=== PATIENT | female | born 1970 | race Caucasian/White ===

== ENCOUNTER 2019-11-01 16:35 | Emergency (ER) | payer SELFPAY ==
[2019-11-01 16:58] VITALS: BP 199/101; PULSE 62; RESP 16; TEMP 36.7; O2SAT 95; BMI 32.3
--- NOTE | 2019-11-01 17:01 | CTR_ITS ---
PROCEDURE INFORMATION: Exam: CT Head Without Contrast Exam date and time: 11/01/2019 5:04 PM Age: 49 years old Clinical indication: Weakness, extremity; Right; Additional info: Symptoms of acute stroke TECHNIQUE: Imaging protocol: Computed tomography of the head without contrast. Radiation optimization: All CT scans at this facility use at least one of these dose optimization techniques: automated exposure control; mA and/or kV adjustment per patient size (includes targeted exams where dose is matched to clinical indication); or iterative reconstruction. Other technique: STROKE PROTOCOL was implemented. COMPARISON: No relevant prior studies available. RADIATION DOSE METRICS: Total DLP (mGy-cm): 1579.87 FINDINGS: Limitations: Study is significantly limited by patient motion. Brain: Normal. No hemorrhage. Unremarkable white matter. No mass effect. Ventricles: Normal. No ventriculomegaly. Bones/joints: Unremarkable. No acute fracture. Sinuses: Visualized sinuses are unremarkable. No fluid levels. Mastoid air cells: Visualized mastoid air cells are well aerated. Soft tissues: Unremarkable. CT/CT head wo con* [id number] IMPRESSION: No acute intracranial finding ASSESSMENT: ASPECTS ([facility] Stroke Program Early CT Score) is 10. Radiation Dose CTDIVOL = (mGy): DLP = 1579.87 (mGy-cm)
--- NOTE | 2019-11-01 17:01 | ECG_ITS ---
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 Measurements Intervals [place] Rate: 62 P: 10 IA: 166 QRS: 14 QRSD: 97 T: 75 QT: 460 QTc: 467 Interpretive Statements SINUS RHYTHM No previous ECG available for comparison Electronically Signed On 11-01-2019 17:11:45 CDT by Cecelia Franz M.D. [id number]
--- NOTE | 2019-11-01 17:30 | ED_ITS ---
HPI - Neuro Symptoms/Deficit General: Chief Complaint: Neuro Symptoms/Deficit Stated Complaint: R SIDED ARM WEAKNESSES/ HYPERTENSION Time Seen by Provider: 11/01/19 16:39 History of Present Illness: HPI Narrative: 49-year-old female comes in complaining of right arm and leg weakness that began yesterday at around 5:00. Approximately 24 hours prior to presentation to the emergency room review patient tested began actually worsened today at around 230 in and also began involve a headache with some scotomata. She is not been taking her antihypertensive medication she usually takes lisinopril when EMS picked her up she had blood pressures up to 190/100 they were going to give her some labetalol per their protocol but unfortunately they could not had any did not have any available in the rig. She has not had any chest pain she does have a headache that began later this afternoon with the elevated blood pressures. He has had a little visual disturbance as well. Although she states that her headache is completely resolved now when she is here in the emergency room her blood pressure has normalized as well to it is in the 120 systolic. Onset (ago): day(s) (1) Timing confirmed by: family member Location: speech, right face, right arm and right leg History of same: Yes Severity: moderate Quality: weak Relieving factors: none Context: sudden onset On Anticoagulants: No Associated symptoms: Reports no associated symptoms; Deny chest pain, malaise, nausea or vomiting Treatments Prior to Arrival: none Review of Systems Const: Denies: fever(s), chills, body aches, change in appetite, fatigue or malaise ENMT: Denies: throat pain, ear or mastoid pain, nasal discharge or nasal congestion Card: Denies: chest pain, edema, dyspnea on exertion or orthopnea Resp: Denies: dyspnea, productive cough or non-productive cough GI: Denies: abdominal pain, nausea, vomiting, hematemesis, coffee ground emesis, diarrhea, constipation, bloating, hematochezia or melena : Denies: flank pain, difficulty voiding, dysuria, urinary frequency or urinary urgency Skin/Breast: Denies: rash or pruritus [facility] ED PFSH: Medical History (Updated 11/13/19 @ 06:53 by Eliceo Fonseca DO) Hypertension Surgical History (Updated 11/01/19 @ 17:34 by Eliceo Fonseca DO) H/O tubal ligation S/P tonsillectomy and adenoidectomy Social History (Updated 11/01/19 @ 17:07 by Anthony Galaviz RN) Smoking and tobacco status: heavy tobacco smoker Alcohol intake: never NIH stroke score NIHSS: Level Of Consciousness - 1a: 0 Level Of Consciousness Questions - 1b: Both Correct Level Of Consciousness Commands - 1c: Both Correct Best Gaze - 2: Normal Visual Ramirez - 3: No Visual Loss Facial Palsy - 4: Normal Motor Arm Right - 5: Drift Motor Arm Left - 5: No Drift Motor Leg Right - 6: Effort Against Yoder Motor Leg Left - 6: No Drift Limb Ataxia - 7: Present In Two Limbs Sensory - 8: Mild To Moderate Loss Best Language - 9: No Aphasia Dysarthia - 10: Normal Extinction And Inattention - 11: 0 Score: Total Score: 6 Physical Exam Const: COMMON NORMALS: no acute distress GENERAL APPEARANCE: cooperative and comfortable ORIENTATION/CONSCIOUSNESS: Yes awake, Yes oriented to person, Yes oriented to place and Yes oriented to time HENMT: COMMON NORMALS: normocephalic, atraumatic, hearing grossly normal bilaterally, external ears normal, EAC's normal, TM's normal bilaterally, Normal nasal mucous membranes and turbinates present, moist oral mucous membranes and oropharynx normal HEAD & SCALP: normocephalic and atraumatic NOSE: Normal nasal mucous membranes and turbinates present EXTERNAL EAR: Yes external ears normal EXTERNAL AUDITORY CANAL: EAC's normal TYMPANIC MEMBRANE: TM's normal bilaterally Eye: COMMON NORMALS: Equal, round and reactive pupils present, EOMs intact bilaterally, conjunctivae normal and no scleral icterus CONJUNCTIVA: Yes conjunctivae normal PUPIL: Yes Equal, round and reactive pupils present Neck/C-Spine: COMMON NORMALS: full ROM, no lymphadenopathy, supple and no JVD Lymph: LYMPHATIC: no lymphadenopathy noted and no lymphedema noted Resp: COMMON NORMALS: normal respiratory effort, No retractions, No use of accessory muscles and clear to auscultation bilaterally AUSCULTATION: clear to auscultation bilaterally Cardio: COMMON NORMALS: no JVD, regular rate, regular rhythm and No murmurs present (Cardio) RATE: regular rate RHYTHM: regular rhythm GI: COMMON NORMALS: Soft to palpation and No hepatosplenomegaly present AUSCULTATION: Yes normoactive bowel sounds PALPATION: Yes Soft to palpation, No Tenderness to palpation present (GI), No Guarding due to palpation present (GI) and Yes No hepatosplenomegaly present Extremity: COMMON NORMALS: normal to inspection, capillary refill normal, no clubbing, cyanosis or edema, no calf tenderness and no pedal edema Neuro: SENSORIUM/ORIENTATION: Yes oriented to person, Yes oriented to place and Yes oriented to time Skin: COMMON NORMALS: no rashes or lesions noted GENERAL SKIN EXAM: no rashes or lesions noted Course Vital Signs: Vital signs: Vital Signs Temperature 98.0 F 11/01/19 16:58 Pulse Rate 62 11/01/19 16:58 Respiratory Rate 16 11/01/19 16:58 Blood Pressure 199/101 11/01/19 16:58 Pulse Oximetry 95 11/01/19 16:58 MDM - Neuro Symptoms/Deficit MDM Narrative: Medical decision making narrative: Most of her symptoms had resolved or recommended that she be placed in observation for further evaluation given his symptoms that she had reached when she first arrived. Patient is adamant about leaving. I discussed the risks of leaving without further evaluation patient is adamant that she be allowed to go home. At this point she is awake and alert oriented answers all questions appropriately she expresses understanding that if she leaves her condition may worsen and could cause severe disability or even and she still wishes to go. I do recommend that she take a baby aspirin daily follow-up with her primary care doctor soon as possible. Lab Data: Labs: Lab Results 11/01/19 11/01/19 11/01/19 Range/Units 17:54 17:54 17:54 WBC 10.0 (4.0-10.0) 10^3/ uL RBC 4.97 (4.1-5.3) 10^6/u L Hgb 9.8 L (11.5-15.3) g/dL Hct 35.2 L (37.0-47.0) % MCV 70.8 L (81-99) fL MCH 19.7 L (28.0-34.0) pg MCHC 27.8 L (30.0-36.0) g/dL RDW 19.7 H (12.1-15.1) % Plt Count 348 (130-400) 10^3/c mm MPV 9.7 (7.4-10.4) fL Neut % (Auto) 70.8 % Lymph % (Auto) 19.2 % Bowie % (Auto) 6.1 % Eos % (Auto) 2.9 % Baso % (Auto) 0.5 % Neut # (Auto) 7.07 (1.8-7.7) 10^3/u L Lymph # (Auto) 1.9 (0.8-4.8) 10^3/u L Bowie # (Auto) 0.6 (0.2-0.9) 10^3/u L Eos # (Auto) 0.3 (0.0-0.8) 10^3/u L Baso # (Auto) 0.1 (0.0-0.1) 10^3/u L Nucleated RBC % (a uto) 0 % Nucleated RBCs # 0.0 /100WBC PT 13.20 (10.5-13.3) SECO NDS INR 0.97 (0.8-1.2) APTT 28.7 (23.9-36.7) SECO NDS Sodium 137 (136-145) mmol/L Potassium 3.9 (3.5-5.1) mmol/L Chloride 101 (98-107) mmol/L Carbon Dioxide 26 (22-29) mmol/L Anion Gap 13.9 (5-19) BUN 8 (6-20) mg/dL Creatinine 0.7 (0.5-0.9) mg/dL GFR Calculation 88.2 L (90-130) mL/min Glucose 114 (65-115) mg/dL Calculated Osmolal ity 281 L (285-295) mOsm/k g Calcium 9.3 (8.5-10.5) mg/dL Total Bilirubin 0.5 (0.15-1.2) mg/dL AST 14 (0-32) U/L ALT 12 (0-33) U/L Alkaline Phosphata se 107 H (35-105) IU/L Total Protein 6.8 (6.6-8.7) g/dL Albumin 4.5 (3.5-5.2) g/dL Globulin 2.3 (1.3-4.6) g/dL Discharge Plan Discharge Patient Disposition: Left Against Medical Advice Clinical Impression: Transient cerebral ischemia, Hypertension Prescriptions: No Action ibuprofen 200 mg Tablet 600 mg PO PRN RF: 0 Referrals: CHIRAG GARCIA, [Primary Care Provider] - Interventions: ED Discharge Assessment Last Done: 11/01/19 19:32 ED Charges Last Done: 11/01/19 19:32 Discharge Date/Time: 11/01/19 19:36 Coding Level of Care Code ED Roll Up Machine Operator for Chg Fwd Exam Comprehensive
[2019-11-01 17:58] LABS: Basophils # 0.1 10^3/uL (0.0-0.1); Basophils % 0.5 %; Eosinophils # 0.3 10^3/uL (0.0-0.8); Eosinophils % 2.9 %; Hematocrit 35.2 % (37.0-47.0); Hemoglobin 9.8 g/dL (11.5-15.3); Lymphocytes # 1.9 10^3/uL (0.8-4.8); Lymphocytes % 19.2 %; Mean Corpuscular HGB Conc 27.8 g/dL (30.0-36.0); Mean Corpuscular Hemoglobin 19.7 pg (28.0-34.0); Mean Corpuscular Volume 70.8 fL (81-99); Mean Platelet Volume 9.7 fL (7.4-10.4); Monocytes # 0.6 10^3/uL (0.2-0.9); Monocytes % 6.1 %; Neutrophils # 7.07 10^3/uL (1.8-7.7); Neutrophils % 70.8 %; Nucleated Red Blood Cells % 0 %; Platelet Count 348 10^3/cmm (130-400); Red Blood Count 4.97 10^6/uL (4.1-5.3); Red Cell Distribution Width 19.7 % (12.1-15.1)
[2019-11-01 18:22] LABS: Alanine Aminotransferase 12 U/L (0-33); Albumin Level 4.5 g/dL (3.5-5.2); Alkaline Phosphatase 107 IU/L (35-105); Anion Gap 13.9 (5-19); Aspartate Amino Transferase 14 U/L (0-32); Blood Urea Nitrogen 8 mg/dL (6-20); Calcium 9.3 mg/dL (8.5-10.5); Carbon Dioxide 26 mmol/L (22-29); Chloride 101 mmol/L (98-107); Globulin 2.3 g/dL (1.3-4.6); Glomerular Filtration Rate 88.2 mL/min (90-130); Glucose 114 mg/dL (65-115); Osmolality Calculated 281 mOsm/kg (285-295); Potassium 3.9 mmol/L (3.5-5.1); Sodium 137 mmol/L (136-145); Total Bilirubin 0.5 mg/dL (0.15-1.2); Total Protein 6.8 g/dL (6.6-8.7)
[2019-11-01 18:26] LABS: INR 0.97 (0.8-1.2); Partial Thromboplastin Time 28.7 SECONDS (23.9-36.7)
== END 2019-11-01 19:36 | disposition left against medical advice (07) ==
LOC: ER 17:15
PROVIDERS: Emergency Provider Family Medicine; PCP Family Medicine
DX: G45.9 Transient cerebral ischemic attack, unspecified (principal); I10 Essential (primary) hypertension; Z53.21 Procedure and treatment not carried out due to patient leaving prior to being seen by health care provider; F17.210 Nicotine dependence, cigarettes, uncomplicated
CPT/HCPCS: 12345; 70450; 80053; 85025; 85610; 85730; 93005; 99282; 99283

== ENCOUNTER 2022-01-28 14:50 | Inpatient (IN) | payer MEDICAID, SELFPAY ==
[2022-01-28] VITALS (34 sets, daily range): BP systolic 184–218; BP diastolic 81–134; PULSE 50–90; RESP 10–23; TEMP 36.7; O2SAT 88–95; BMI 38.4
--- NOTE | 2022-01-28 14:55 | CTR_ITS ---
PROCEDURE INFORMATION: Exam: CT Head Without Contrast Exam date and time: 01/28/2022 2:52 PM Age: 52 years old Clinical indication: Stroke-like symptoms; Speech disturbance; Lt upper extremity weakness; Additional info: Symptoms of acute stroke TECHNIQUE: Imaging protocol: Computed tomography of the head without contrast. Radiation optimization: All CT scans at this facility use at least one of these dose optimization techniques: automated exposure control; mA and/or kV adjustment per patient size (includes targeted exams where dose is matched to clinical indication); or iterative reconstruction. Other technique: STROKE PROTOCOL was implemented. COMPARISON: CT head wo con* [id number] 11/01/2019 5:10 PM RADIATION DOSE METRICS: Total DLP (mGy-cm): 1082.88 FINDINGS: Brain: Chronic right superolateral thalamic lacunar infarction. Ventricles: No ventriculomegaly. Paranasal sinuses: Visualized sinuses are unremarkable. No fluid levels. Mastoid air cells: Visualized mastoid air cells are well aerated. Bones/joints: Lateral right frontal bone external table benign osteoma measuring 7.4 mm, stable. Soft tissues: Unremarkable. Vasculature: Atherosclerotic calcifications are present involving the carotid artery siphons and vertebral arteries bilaterally. CT/CT head wo con* [id number] IMPRESSION: 1. Chronic right superolateral thalamic lacunar infarction. 2. No acute intracranial abnormality identified. ASSESSMENT: ASPECTS ([place] Stroke Program Early CT Score) is 10.
[2022-01-28 15:09] LABS: Glucose Point of Care 123 mg/dL (70-110)
--- NOTE | 2022-01-28 15:13 | W.ED.GENADLT ---
HPI - General Adult General: Chief complaint: Neuro Symptoms/Deficit Stated complaint: stroke like symptoms,left facial droop Time Seen by Provider: 01/28/22 14:54 History of Present Illness: Patient is 52-year-old female with no known past medical history presents emergency room with concerns of left-sided facial droop and left arm paralysis since yesterday night between 9 AM to midnight. Patient first noticed symptoms around that time. Since, patient has not been able to move the arm or leg. Earlier today, due to persistence of symptoms, patient decided to call EMS. Patient is not on any anticoagulation. Patient has no other focal complaints including nausea/vomiting, fever/chill, chest pain, shortness of breath, abdominal pain, dysuria/hematuria/polyuria, diarrhea/melena/hematochezia. Onset:9pm-12am yesterday Duration: 18 hrs nguyễn Location:home Severity:severe Associated symptoms: Deny chest pain, dyspnea, nausea, rash, palpitations or vomiting Review of Systems Const: Denies: fever(s) or chills Eyes: Denies: change in vision ENMT: Denies: mouth pain Card: Denies: chest pain or palpitations Resp: Denies: dyspnea or non-productive cough GI: Denies: abdominal pain, nausea, vomiting or diarrhea : Denies: dysuria Musc: Denies: extremity pain Skin/Breast: Denies: rash or new lesions Neuro: Reports: weakness in extremities (+L sided weakness/ Larm weakness/Lleg weakness/ Lfacial droop/speech diff) Psych: Reports: other (Normal mood) Wiliam/Lymph: Denies: easy bruising [facility] ED PFSH: Medical History (Updated 02/02/22 @ 10:19 by Aniya Reynolds MD) History of multiple strokes Hypertension Surgical History H/O tubal ligation S/P tonsillectomy and adenoidectomy Social History Smoking and tobacco status: heavy tobacco smoker Alcohol intake: never Physical Exam Const: COMMON NORMALS: alert HENMT: COMMON NORMALS: atraumatic HEAD & SCALP: atraumatic MOUTH: moist mucous membranes not abnormal Eye: COMMON NORMALS: EOMs intact bilaterally and conjunctivae normal CONJUNCTIVA: Yes conjunctivae normal Neck/C-Spine: COMMON NORMALS: full ROM and supple Resp: COMMON NORMALS: normal respiratory effort and clear to auscultation bilaterally AUSCULTATION: clear to auscultation bilaterally Cardio: COMMON NORMALS: regular rate RATE: regular rate GI: COMMON NORMALS: Soft to palpation and non-tender PALPATION: Yes Soft to palpation Extremity: COMMON NORMALS: full ROM Neuro: SENSORIUM/ORIENTATION: Yes alert MOTOR EXAM: Abnormal motor strength present OTHER: Head: Atraumatic Eyes: PERRL, conjunctiva without injection ENT: Mucous membrane moist NECK: Supple without lymphadenopathy LUNGS: CTA CV: RRR ABDOMEN: Soft, nontender EXTREMITY: Normal ROM SKIN: No rash or erythema NEURO: NIHSS: 18 1. Level of Consciousness 1 A) LOC Responsiveness 0 B) LOC Questions 0 C) LOC Commands 0 2. Horizontal Eye Movement 0 3. Visual field test 0 4. Facial Palsy 3 5. Motor Arm 4 6. Motor Leg 4 7. Limb Ataxia 0 8. Sensation 2 9. Language 1 10. Speech 2 11. Extinction and Inattention 0 Psych: COMMON NORMALS: speech normal SPEECH: Yes normal speech MOOD & AFFECT: Yes euthymic mood Course Vital Signs: Vital signs: Vital Signs Temperature 98.0 F 02/02/22 10:59 Pulse Rate 62 02/02/22 10:59 Respiratory Rate 17 02/02/22 10:59 Blood Pressure 176/64 02/02/22 10:59 Pulse Oximetry 93 02/02/22 10:59 Oxygen Delivery Me thod 02/02/22 10:59 Oxygen Flow Rate 2 02/01/22 20:42 MDM - General Adult Medical Decision Making 52-year-old female history hypertension presenting to the emergency room with new onset of left-sided weakness and slurring of speech since 9 to 12am yesterday. Exam, patient has NIH stroke scale of 19. Patient is outside of tPA window. CT head is negative for any acute finding. CTA head and neck showed right-sided PHONE ENGINEER P2 segment acute occlusion. Patient is within tomorrow for mechanical thrombectomy. We will attempt to transfer this time. Case was discussed with Dr. Mendes who agreed with the transfer to [facility] ED for mechanical thrombectomy. Disposition: Transfer to outside hospital We have arranged for [facility] as well as an accepting hospital. However, around 171, patient declined to be transferred. Initially patient tells me that she would like not like to be fly. I have offered patient mild sedation medicine however patient continues to decline the transfer. I explained to the patient of the risk of complete paralysis as well as the terrible quality of life should she decide against transfering for mechanical thrombectomy. She continues to be insistent that she would not like to be transferred to another hospital at this time. Patient asked to have her family at bedside. I discussed case with patient's daughter and son at bedside. Patient is AAOx3, answering all my questions appropriately. Patient currently has capacity. Case was discussed with [facility] Neurology Dr. Rao who will follow patient for acute stroke. Dr. Rao recommended medical optimization and cardiac workup. At 8:30 PM, patient had a shared decision making with family and patient would like to stay in the hospital for further observation. Disposition: observation. Lab Data : 02/02/22 04:39 02/02/22 04:[address] 01/28/22 14:55 IMPRESSION: 1. Chronic right superolateral thalamic lacunar infarction. 2. No acute intracranial abnormality identified. ASSESSMENT: ASPECTS ([place] Stroke Program Early CT Score) is 10. ADDENDUM: 01/28/22 1519 THIS REPORT CONTAINS FINDINGS THAT MAY BE CRITICAL TO PATIENT CARE. The findings were verbally communicated by me to DR. ALEXA BENAVIDES via telephone conference at 3:16 PM CDT on 01/28/2022. The findings were acknowledged and understood. Head/Neck CTA 01/28/22 15:20 IMPRESSION: 1. Severe stenosis proximal right posterior cerebral artery P1 segment. 2. Occlusion right posterior cerebral artery P2 segment. 3. Reconstitution right posterior cerebral artery P3 and peripheral segments, presumably via leptomeningeal collaterals. 4. Right internal carotid artery cavernous segment and clinoid segment moderate stenosis. IMPRESSION: 1. Severe (70%) left internal carotid artery origin short segment stenosis. 2. Recommend nonemergent thyroid sonography for further evaluation of a left thyroid masses. 3. Mild nonspecific mediastinal lymphadenopathy. COMMENTS: Consistent with the [employer]'s Incidental Findings Committee white paper (J Am Samantha Radiol 2015): In patients aged 35 years and older with an incidental thyroid nodule equal to or greater than 1.[address], MRI or extrathyroidal US, further evaluation with dedicated thyroid US is recommended for patients with normal life expectancy and without comorbidities. For smaller nodules without suspicious features, no further evaluation or follow up is recommended. REFERENCES: NASCET CRITERIA. The degree of stenosis in the cervical segment of the internal carotid artery is based on NASCET criteria. Normal is no stenosis. Mild is less than 50% stenosis. Moderate is 50-69% stenosis. Severe is 70% to 99% stenosis. Total occlusion is no detectable patent lumen. Thyroid Ultrasound 01/29/22 08:20 IMPRESSION: 1. Large complex cystic nodule in the LEFT thyroid. No increased vascularity. Typically cystic nodules are more likely benign. Recommend 6 month thyroid ultrasound follow-up to document stability. 2. No RIGHT thyroid nodules. Chest X-Ray 01/29/22 09:48 IMPRESSION: Imaging findings suggestive of mild pulmonary congestion. Pneumonia should be excluded clinically. Modified Barium Swallow 02/01/22 08:23 IMPRESSION: 1. A few episodes of laryngeal penetration with liquids. 2. No aspiration. Please see speech therapist report also for recommendations. Laboratory Results WBC 11.0 10^3/uL (4.0-10.0) H 01/28/22 15:01 RBC 5.37 10^6/uL (4.1-5.3) H 01/28/22 15:01 Hgb 12.8 g/dL (11.5-15.3) 01/28/22 15:01 Hct 42.0 % (37.0-47.0) 01/28/22 15:01 MCV 78.2 fl (81-99) L 01/28/22 15:01 MCH 23.8 pg (28.0-34.0) L 01/28/22 15:01 MCHC 30.5 g/dL (30.0-36.0) 01/28/22 15:01 RDW 18.6 % (12.1-15.1) H 01/28/22 15:01 Plt Count 246 10^3/cmm (130-400) 01/28/22 15:01 MPV 10.6 fL (7.4-10.4) H 01/28/22 15:01 Neut % (Auto) 73.2 % 01/28/22 15:01 Lymph % (Auto) 16.3 % 01/28/22 15:01 Stephenson % (Auto) 5.5 % 01/28/22 15:01 Eos % (Auto) 3.5 % 01/28/22 15:01 Baso % (Auto) 0.7 % 01/28/22 15:01 Neut # (Auto) 8.02 10^3/uL (1.8-7.7) H 01/28/22 15:01 Lymph # (Auto) 1.8 10^3/uL (0.8-4.8) 01/28/22 15:01 Stephenson # (Auto) 0.6 10^3/uL (0.2-0.9) 01/28/22 15:01 Eos # (Auto) 0.4 10^3/uL (0.0-0.8) 01/28/22 15:01 Baso # (Auto) 0.1 10^3/uL (0.0-0.1) 01/28/22 15:01 Nucleated RBC % (auto) 0 % 01/28/22 15:01 Nucleated RBCs # 0.0 /100WBC 01/28/22 15:01 PT 13.50 SECONDS (12.1-14.9) 01/28/22 15:01 INR 1.00 (0.8-1.2) 01/28/22 15:01 APTT 29.2 SECONDS (23.9-36.7) 01/28/22 15:01 Sodium 135 mmol/L (136-145) L 01/28/22 15:01 Potassium 3.9 mmol/L (3.5-5.1) 01/28/22 15:01 Chloride 97 mmol/L (98-107) L 01/28/22 15:01 Carbon Dioxide 25 mmol/L (22-29) 01/28/22 15:01 Anion Gap 16.9 (5-19) 01/28/22 15:01 BUN 12 mg/dL (6-20) 01/28/22 15:01 Creatinine 0.7 mg/dL (0.5-0.9) 01/28/22 15:01 GFR Calculation 87.2 mL/min (90-130) L 01/28/22 15:01 Glucose 122 mg/dL (65-115) H 01/28/22 15:01 POC Glucose 123 mg/dL (70-110) H 01/28/22 15:03 Calculated Osmolality 281 mOsm/kg (285-295) L 01/28/22 15:01 Calcium 9.6 mg/dL (8.5-10.5) 01/28/22 15:01 Total Bilirubin 0.6 mg/dL (0.15-1.2) 01/28/22 15:01 AST 11 U/L (0-32) 01/28/22 15:01 ALT 12 U/L (0-33) 01/28/22 15:01 Alkaline Phosphatase 116 U/L (35-105) H 01/28/22 15:01 Total Protein 6.6 g/dL (6.6-8.7) 01/28/22 15:01 Albumin 4.0 g/dL (3.5-5.2) 01/28/22 15:01 Globulin 2.6 g/dL (1.3-4.6) 01/28/22 15:01 Urine Color Yellow (Yellow) 01/28/22 19:12 Urine Appearance Clear (CLEAR) 01/28/22 19:12 Urine pH 5 (5-7) 01/28/22 19:12 Ur Specific [place] 1.005 (1.005-1.030) 01/28/22 19:12 Urine Protein 1+ (Negative) H 01/28/22 19:12 Urine Glucose (UA) Norm (Normal) 01/28/22 19:12 Urine Ketones 1+ (Negative) H 01/28/22 19:12 Urine Blood 3+ (Negative) H 01/28/22 19:12 Urine Nitrate Negative (Negative) 01/28/22 19:12 Urine Bilirubin Neg (Negative) 01/28/22 19:12 Urine Urobilinogen Norm mg/dL (Negative) 01/28/22 19:12 Ur Leukocyte Esterase Negative (Negative) 01/28/22 19:12 Urine RBC 5-10 /hpf (0-2) H 01/28/22 19:12 Urine WBC 0-4 /hpf (0-5) H 01/28/22 19:12 Ur Squamous Epith Cells 0-4 /hpf (0-5) H 01/28/22 19:12 Amorphous Sediment Not Reportable 01/28/22 19:12 Urine Bacteria Trace /hpf (NONE) 01/28/22 19:12 Imaging Data Other Imaging: Radiologist's impression: [address] [place] [address] CT Scan Report Signed Patient: Zahira Blood Unit #: [id number] : 1970 Age/Sex: 52 / F ADM Date: 01/28/22 Loc: ER Room/Bed: Attending Dr: Ordering Provider/Ordering MD: Alexa Benavides MD Date of Service: 01/28/22 Procedure(s): CT angio headneck* [id number] Accession Number(s): [id number] Report Number: [id number] PROCEDURE INFORMATION: Exam: CTA Head With Contrast, Arteriography Exam date and time: 01/28/2022 3:44 PM Age: 52 years old Clinical indication: Weakness; Additional info: Complete L sided weakness x 2 days TECHNIQUE: Imaging protocol: Computed tomographic angiography of the head with contrast. Exam focused on the arteries. 3D rendering (Not supervised by radiologist): MIP reconstructed images were created by the technologist. Radiation optimization: All CT scans at this facility use at least one of these dose optimization techniques: automated exposure control; mA and/or kV adjustment per patient size (includes targeted exams where dose is matched to clinical indication); or iterative reconstruction. Contrast material: OMNIPAQUE 350; Contrast volume: 100 ml; Contrast route: INTRAVENOUS (IV);? COMPARISON: CT head wo con* [id number] 01/28/2022 2:52 PM RADIATION DOSE METRICS: Total DLP (mGy-cm): 504.35 FINDINGS: ANTERIOR CIRCULATION: Right internal carotid artery: Right internal carotid artery cavernous segment 50-69% stenosis. Right internal carotid artery clinoid segment 50-69% stenosis. Right middle cerebral artery: No occlusion or significant stenosis. No aneurysm.? Right anterior cerebral artery: No occlusion or significant stenosis. No aneurysm.? Left internal carotid artery: Left internal carotid artery calcified plaque, less than 25% stenosis. Left middle cerebral artery: No occlusion or significant stenosis. No aneurysm.? Left anterior cerebral artery: No occlusion or significant stenosis. No aneurysm.? POSTERIOR CIRCULATION: Right vertebral artery: Right vertebral artery V4 segment atherosclerotic calcification, less than 50% stenosis. Left vertebral artery: Left vertebral artery V4 segment atherosclerotic calcifications, less than 30% stenosis. Basilar artery: No occlusion or significant stenosis. No aneurysm. Right posterior cerebral artery: Severe stenosis proximal right posterior cerebral artery P1 segment. Occlusion right posterior cerebral artery P2 segment. Reconstitution right posterior cerebral artery P3 and peripheral segments. Left posterior cerebral artery: No occlusion or significant stenosis. No aneurysm.? Brain: No definite mass, mass effect, or midline shift. Ventricles: No ventriculomegaly. Bones/joints: Small right lateral frontal external table osteoma redemonstrated. Soft tissues: Unremarkable. PROCEDURE INFORMATION: Exam: CTA Neck With Contrast Exam date and time: 01/28/2022 3:44 PM Age: 52 years old Clinical indication: Weakness; Additional info: Complete L sided weakness x 2 days TECHNIQUE: Imaging protocol: Computed tomographic angiography of the neck with contrast. 3D rendering (Not supervised by radiologist): MIP reconstructed images were created by the technologist. Radiation optimization: All CT scans at this facility use at least one of these dose optimization techniques: automated exposure control; mA and/or kV adjustment per patient size (includes targeted exams where dose is matched to clinical indication); or iterative reconstruction. Contrast material: OMNIPAQUE 350; Contrast volume: 100 ml; Contrast route: INTRAVENOUS (IV);? COMPARISON: CT head wo con* [id number] 01/28/2022 2:52 PM RADIATION DOSE METRICS: Total DLP (mGy-cm): 504.35 FINDINGS: Right common carotid artery: Minimal right common carotid artery bifurcation calcifications, no stenosis. Right internal carotid artery: No stenosis of the extracranial segment. No dissection or occlusion. Right external carotid artery: No occlusion or stenosis of the origin.? Left common carotid artery: Moderate left common carotid artery bifurcation atherosclerotic calcifications Left internal carotid artery: Severe left internal carotid artery origin short segment stenosis. Left external carotid artery: No occlusion or stenosis of the origin.? Right vertebral artery: Proximal right vertebral artery V1 segment atherosclerotic calcification, less than 50% stenosis. Left vertebral artery: No stenosis. No dissection or occlusion. Thyroid: Left inferior thyroid heterogeneous mass measuring 4.3 x 3.7 x 2.6 cm. Left upper thyroid marginally calcified 3.7 x 3.9 x 2.9 cm mass. Dental: Edentulous maxilla and mandible. Lymph nodes: Right paratracheal lymph node measuring 10 mm short axis. Right subcarinal lymph node measuring 13.6 mm short axis. Soft tissues: Normal. No significant soft tissue swelling. Bones/joints: No acute fracture. Lungs: Right lower and bilateral upper lobe calcified pulmonary parenchymal granulomas. CT/CT angio headneck* [id number] IMPRESSION: 1. Severe stenosis proximal right posterior cerebral artery P1 segment. 2. Occlusion right posterior cerebral artery P2 segment. 3. Reconstitution right posterior cerebral artery P3 and peripheral segments, presumably via leptomeningeal collaterals. 4. Right internal carotid artery cavernous segment and clinoid segment moderate stenosis. ? IMPRESSION: 1. Severe (70%) left internal carotid artery origin short segment stenosis. 2. Recommend nonemergent thyroid sonography for further evaluation of a left thyroid masses. 3. Mild nonspecific mediastinal lymphadenopathy. ? COMMENTS: Consistent with the [employer]'s Incidental Findings Committee white paper (J Am Samantha Radiol 2015): In patients aged 35 years and older with an incidental thyroid nodule equal to or greater than 1.[address], MRI or extrathyroidal US, further evaluation with dedicated thyroid US is recommended for patients with normal life expectancy and without comorbidities. For smaller nodules without suspicious features, no further evaluation or follow up is recommended. ? REFERENCES: NASCET CRITERIA. The degree of stenosis in the cervical segment of the internal carotid artery is based on NASCET criteria. Normal is no stenosis. Mild is less than 50% stenosis. Moderate is 50-69% stenosis. Severe is 70% to 99% stenosis. Total occlusion is no detectable patent lumen. ? Dictated By: Porter Alfred MD Signed By: Porter Alfred MD Signed Date/Time: 01/28/22 1628 DD/ [address] [address] [address] Scan Report Signed with Addenda Patient: Zahira Blood Unit #: [id number] : 1970 Age/Sex: 52 / F ADM Date: 01/28/22 Loc: ER Room/Bed: Attending Dr: Ordering Provider/Ordering MD: Alexa Benavides MD Date of Service: 01/28/22 Procedure(s): CT head wo con* [id number] Accession Number(s): [id number] Report Number: [id number]/CT head wo con* [id number] THIS REPORT CONTAINS FINDINGS THAT MAY BE CRITICAL TO PATIENT CARE. The findings were verbally communicated by me to DR. ALEXA BENAVIDES via telephone conference at 3:16 PM CDT on 01/28/2022. The findings were acknowledged and understood. ? Addendum Dictated By: ?Porter Alfred MD Addendum Signed By: ?Porter Alfred MD Signed Date/Time: 01/28/22 1519 Addendum Cosigned By: ? PROCEDURE INFORMATION: Exam: CT Head Without Contrast Exam date and time: 01/28/2022 2:52 PM Age: 52 years old Clinical indication: Stroke-like symptoms; Speech disturbance; Lt upper extremity weakness; Additional info: Symptoms of acute stroke TECHNIQUE: Imaging protocol: Computed tomography of the head without contrast. Radiation optimization: All CT scans at this facility use at least one of these dose optimization techniques: automated exposure control; mA and/or kV adjustment per patient size (includes targeted exams where dose is matched to clinical indication); or iterative reconstruction. Other technique: STROKE PROTOCOL was implemented. COMPARISON: CT head wo con* [id number] 11/01/2019 5:10 PM RADIATION DOSE METRICS: Total DLP (mGy-cm): 1082.88 FINDINGS: Brain: Chronic right superolateral thalamic lacunar infarction. Ventricles: No ventriculomegaly. Paranasal sinuses: Visualized sinuses are unremarkable. No fluid levels. Mastoid air cells: Visualized mastoid air cells are well aerated. Bones/joints: Lateral right frontal bone external table benign osteoma measuring 7.4 mm, stable. Soft tissues: Unremarkable. Vasculature: Atherosclerotic calcifications are present involving the carotid artery siphons and vertebral arteries bilaterally. CT/CT head wo con* [id number] IMPRESSION: 1. Chronic right superolateral thalamic lacunar infarction. 2. No acute intracranial abnormality identified. ? ASSESSMENT: ASPECTS ([place] Stroke Program Early CT Score) is 10. ? Dictated By: Porter Alfred MD Signed By: Porter Alfred MD Signed Date/Time: 01/28/22 1509 DD/ 1452 Critical Care Time Critical Care Time: Critical Care Time: Yes Total Critical Care Time: 45 Attestation: The high probability of a clinically significant, sudden or life threatening deterioration of the patient's 40 system(s) required my full and direct attention, intervention and personal management. The critical care time is as shown. 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
[2022-01-28 15:19] LABS: Basophils # 0.1 10^3/uL (0.0-0.1); Basophils % 0.7 %; Eosinophils # 0.4 10^3/uL (0.0-0.8); Eosinophils % 3.5 %; Hemoglobin 12.8 g/dL (11.5-15.3); Lymphocytes # 1.8 10^3/uL (0.8-4.8); Lymphocytes % 16.3 %; Mean Corpuscular HGB Conc 30.5 g/dL (30.0-36.0); Mean Corpuscular Hemoglobin 23.8 pg (28.0-34.0); Mean Corpuscular Volume 78.2 fl (81-99); Mean Platelet Volume 10.6 fL (7.4-10.4); Monocytes # 0.6 10^3/uL (0.2-0.9); Monocytes % 5.5 %; Neutrophils # 8.02 10^3/uL (1.8-7.7); Neutrophils % 73.2 %; Nucleated Red Blood Cells % 0 %; Platelet Count 246 10^3/cmm (130-400); Red Blood Count 5.37 10^6/uL (4.1-5.3); Red Cell Distribution Width 18.6 % (12.1-15.1)
--- NOTE | 2022-01-28 15:20 | CTR_ITS ---
PROCEDURE INFORMATION: Exam: CTA Head With Contrast, Arteriography Exam date and time: 01/28/2022 3:44 PM Age: 52 years old Clinical indication: Weakness; Additional info: Complete L sided weakness x 2 days TECHNIQUE: Imaging protocol: Computed tomographic angiography of the head with contrast. Exam focused on the arteries. 3D rendering (Not supervised by radiologist): MIP reconstructed images were created by the technologist. Radiation optimization: All CT scans at this facility use at least one of these dose optimization techniques: automated exposure control; mA and/or kV adjustment per patient size (includes targeted exams where dose is matched to clinical indication); or iterative reconstruction. Contrast material: OMNIPAQUE 350; Contrast volume: 100 ml; Contrast route: INTRAVENOUS (IV); COMPARISON: CT head wo con* [id number] 01/28/2022 2:52 PM RADIATION DOSE METRICS: Total DLP (mGy-cm): 504.35 FINDINGS: ANTERIOR CIRCULATION: Right internal carotid artery: Right internal carotid artery cavernous segment 50-69% stenosis. Right internal carotid artery clinoid segment 50-69% stenosis. Right middle cerebral artery: No occlusion or significant stenosis. No aneurysm. Right anterior cerebral artery: No occlusion or significant stenosis. No aneurysm. Left internal carotid artery: Left internal carotid artery calcified plaque, less than 25% stenosis. Left middle cerebral artery: No occlusion or significant stenosis. No aneurysm. Left anterior cerebral artery: No occlusion or significant stenosis. No aneurysm. POSTERIOR CIRCULATION: Right vertebral artery: Right vertebral artery V4 segment atherosclerotic calcification, less than 50% stenosis. Left vertebral artery: Left vertebral artery V4 segment atherosclerotic calcifications, less than 30% stenosis. Basilar artery: No occlusion or significant stenosis. No aneurysm. Right posterior cerebral artery: Severe stenosis proximal right posterior cerebral artery P1 segment. Occlusion right posterior cerebral artery P2 segment. Reconstitution right posterior cerebral artery P3 and peripheral segments. Left posterior cerebral artery: No occlusion or significant stenosis. No aneurysm. Brain: No definite mass, mass effect, or midline shift. Ventricles: No ventriculomegaly. Bones/joints: Small right lateral frontal external table osteoma redemonstrated. Soft tissues: Unremarkable. PROCEDURE INFORMATION: Exam: CTA Neck With Contrast Exam date and time: 01/28/2022 3:44 PM Age: 52 years old Clinical indication: Weakness; Additional info: Complete L sided weakness x 2 days TECHNIQUE: Imaging protocol: Computed tomographic angiography of the neck with contrast. 3D rendering (Not supervised by radiologist): MIP reconstructed images were created by the technologist. Radiation optimization: All CT scans at this facility use at least one of these dose optimization techniques: automated exposure control; mA and/or kV adjustment per patient size (includes targeted exams where dose is matched to clinical indication); or iterative reconstruction. Contrast material: OMNIPAQUE 350; Contrast volume: 100 ml; Contrast route: INTRAVENOUS (IV); COMPARISON: CT head wo con* [id number] 01/28/2022 2:52 PM RADIATION DOSE METRICS: Total DLP (mGy-cm): 504.35 FINDINGS: Right common carotid artery: Minimal right common carotid artery bifurcation calcifications, no stenosis. Right internal carotid artery: No stenosis of the extracranial segment. No dissection or occlusion. Right external carotid artery: No occlusion or stenosis of the origin. Left common carotid artery: Moderate left common carotid artery bifurcation atherosclerotic calcifications Left internal carotid artery: Severe left internal carotid artery origin short segment stenosis. Left external carotid artery: No occlusion or stenosis of the origin. Right vertebral artery: Proximal right vertebral artery V1 segment atherosclerotic calcification, less than 50% stenosis. Left vertebral artery: No stenosis. No dissection or occlusion. Thyroid: Left inferior thyroid heterogeneous mass measuring 4.3 x 3.7 x 2.6 cm. Left upper thyroid marginally calcified 3.7 x 3.9 x 2.9 cm mass. Dental: Edentulous maxilla and mandible. Lymph nodes: Right paratracheal lymph node measuring 10 mm short axis. Right subcarinal lymph node measuring 13.6 mm short axis. Soft tissues: Normal. No significant soft tissue swelling. Bones/joints: No acute fracture. Lungs: Right lower and bilateral upper lobe calcified pulmonary parenchymal granulomas. CT/CT angio headneck* [id number] IMPRESSION: 1. Severe stenosis proximal right posterior cerebral artery P1 segment. 2. Occlusion right posterior cerebral artery P2 segment. 3. Reconstitution right posterior cerebral artery P3 and peripheral segments, presumably via leptomeningeal collaterals. 4. Right internal carotid artery cavernous segment and clinoid segment moderate stenosis. IMPRESSION: 1. Severe (70%) left internal carotid artery origin short segment stenosis. 2. Recommend nonemergent thyroid sonography for further evaluation of a left thyroid masses. 3. Mild nonspecific mediastinal lymphadenopathy. COMMENTS: Consistent with the [employer]'s Incidental Findings Committee white paper (J Am Samantha Radiol 2015): In patients aged 35 years and older with an incidental thyroid nodule equal to or greater than 1.[address], MRI or extrathyroidal US, further evaluation with dedicated thyroid US is recommended for patients with normal life expectancy and without comorbidities. For smaller nodules without suspicious features, no further evaluation or follow up is recommended. REFERENCES: NASCET CRITERIA. The degree of stenosis in the cervical segment of the internal carotid artery is based on NASCET criteria. Normal is no stenosis. Mild is less than 50% stenosis. Moderate is 50-69% stenosis. Severe is 70% to 99% stenosis. Total occlusion is no detectable patent lumen.
[2022-01-28 15:32] LABS: Partial Thromboplastin Time 29.2 SECONDS (23.9-36.7)
--- NOTE | 2022-01-28 15:37 | ECG_ITS ---
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 Measurements Intervals [place] Rate: 70 P: 74 AR: 180 QRS: 48 QRSD: 91 T: 70 QT: 441 QTc: 476 Interpretive Statements SINUS RHYTHM Compared to ECG 11/01/2019 17:18:50 No significant changes Electronically Signed On 01-28-2022 17:07:48 CDT by Cecelia Franz M.D. [email or web address]
[2022-01-28 15:49] LABS: Alanine Aminotransferase 12 U/L (0-33); Alkaline Phosphatase 116 U/L (35-105); Anion Gap 16.9 (5-19); Aspartate Amino Transferase 11 U/L (0-32); Blood Urea Nitrogen 12 mg/dL (6-20); Calcium 9.6 mg/dL (8.5-10.5); Carbon Dioxide 25 mmol/L (22-29); Chloride 97 mmol/L (98-107); Globulin 2.6 g/dL (1.3-4.6); Glomerular Filtration Rate 87.2 mL/min (90-130); Glucose 122 mg/dL (65-115); Osmolality Calculated 281 mOsm/kg (285-295); Potassium 3.9 mmol/L (3.5-5.1); Sodium 135 mmol/L (136-145); Total Bilirubin 0.6 mg/dL (0.15-1.2); Total Protein 6.6 g/dL (6.6-8.7)
[2022-01-28] MEDS: iohexol 350 mg/mL 100 mL Btl IV (15:53)
--- NOTE | 2022-01-28 16:20 | PC.NURSE ---
Pt's daughter, Emma, called for update on her mother. Explained to Emma unable to give any information out due to her not being on the contact list. Emma reports she is always on the lists as well as her brother Adalberto. Emma states she is on her way here, her phone number is [phone]. After call, nurse asked pt if it would be okay to update her daughter Emma and give her information. Per pt, she does not want family knowing anything and wants staff to tell her to mind her own business. Charge nurse notified.
--- NOTE | 2022-01-28 17:22 | PC.NURSE ---
flight crew in ER for patient, pt states she does not want to transfer anywhere and wants to go home. pt is oriented to person, place, month, and year. Educated pt on risks of refusal of services and benefits of transfer. physician at bedside. pt states that she will be fine. Pt demanding a cup of water, per Dr. Benavides, okay to give pt a cup of water. pt took a sip of water and it immediately ran out of her mouth, pt began coughing aggressively. Attempted again to educate pt on the severity of her symptoms and risks of going home. pt again stated that she will be fine. pt able to wiggle toes of left foot, otherwise has no real movements of left arm or left leg. pt gave consent for staff to call her children Emma and Adalberto and update them on what is going on. At this time, daughter Emma is on her way and going to try and convince pt for transfer. Daughter states that pt is not of right mind and that she is willing to take it to court if need be. historic sites supervisor awaiting arrival of daughter to mediate and discuss urgent need for transfer. Multiple staff members have been to room to encourage pt to be agreeable with transfer, pt continues to refuse.
--- NOTE | 2022-01-28 17:45 | PC.NURSE ---
daughter is at bedside with Dr. Benavides, this RN, and char house supervisor
--- NOTE | 2022-01-28 18:24 | PC.NURSE ---
Was notified by family that pt was agreeable to transfer if she was unable to stand up and walk out herself. Dr. Benavides, this RN, and warehouse order picker to room and assisted pt to standing position at side of bed as pt was unable to get herself out of bed herself. pt unable to bare weight and needed assisted back into the bed. Pt stated she does not remember the conversation where she was agreeable to go.
--- NOTE | 2022-01-28 18:37 | PC.NURSE ---
pt refusing BP monitoring. family remains at bedside
--- NOTE | 2022-01-28 18:53 | PC.NURSE ---
pt refused blood sugar recheck. pt able to answer orientation questions
--- NOTE | 2022-01-28 18:54 | PC.NURSE ---
pt refusing to keep oxygen on
--- NOTE | 2022-01-28 18:57 | PC.NURSE ---
Report given to TAWANA Merritt to assume care
--- NOTE | 2022-01-28 19:00 | PC.NURSE ---
Report from TAWANA Perez. Pt is laying on left side in bed. Pt is alert to person, place, date, time. Pt has slurred speech, but able to follow commands and is completely oriented. Pt refuses any kind of assessment. Refuses to allow this RN to take BP or do NIHSS. Pt states she is going home. notified.
--- NOTE | 2022-01-28 19:01 | PC.NURSE ---
updated Munir at [facility] of pt refusal for transfer. Requests staff to call [facility] if pt agreeable to transfer or if pt unable to make own decisions and will be transferred
[2022-01-28 19:38] LABS: Add Urine Culture? No; Add Urine Microscopic? YES; Bacteria Urine TRACE /hpf; Bilirubin Urine Neg (Negative); Blood Urine 3+ (Negative); Glucose Urine UA Norm (Normal); Ketones Urine 1+ (Negative); Leukocyte Esterase Urine Negative (Negative); Nitrate Urine Negative (Negative); Protein Urine 1+ (Negative); Specific Gravity, Urine 1.005 (1.005-1.030); Squamous Epithelial Cell Urine 0-4 /hpf (0-5); Urine Appearance Clear (CLEAR); Urine Color Yellow (Yellow); Urobilinogen Urine Norm (Negative); WBC Urine 0-4 /hpf (0-5); pH Urine 5 (5-7)
[2022-01-28] MEDS: nicotine 21 mg Patch 1 PATCH TRANSDERMA (20:09)
--- NOTE | 2022-01-28 20:11 | PC.NURSE ---
Assisted pt to bedside commode. Max assist with RN x 2 and family member at bedside. While on bedside commode, pt attepting to get up on her own. Pt has no use of left side. This RN vergara with pt to stay seated, that she will fall if she attempts to stand. Pt understood and stayed seated. Second family member at bedside expressing that she is upset that this RN is being mean to pt. Other family member in room told upset family member to leave, and that no one is being mean, we are all trying to help pt keep from hurting herself. Upset family member left room. This RN, tech, and family member assisted pt to wheelchair.
--- NOTE | 2022-01-28 20:14 | PC.NURSE ---
In report, Ana RN notified this RN that Versed had been given to calm patient. There is an order on MAR for this, but not documented. Charge nurse notified.
--- NOTE | 2022-01-28 21:37 | PC.NURSE ---
Admitting MD notified of patient BP. She states she was aware and no new orders.
--- NOTE | 2022-01-28 21:51 | P.HP_ITS ---
Providers/Chief Complaint Admitting Physician: Nancy Sánchez MD Primary Care Provider: Gabe Ellis DO Chief Complaint: stroke like symptoms,left facial droop History of Present Illness Zahira Blood is a 52 year old female with a past medical history of hypertension, multiple strokes in the past presenting to the emergency room today with new onset left-sided weakness, facial deviation and dysarthria. Patient was noted to have acute stroke with NIH stroke scale of 18 upon pre sentation. She was out of the tPA window upon presentation. Time of onset was sometime between 9 AM to midnight yesterday. 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 Patient was within the window to get a mechanical thrombectomy, however as arrangements were being made to transfer patient to a higher center, she eventually refused to be transferred. 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 She was wheelchair-bound for about 3 weeks but then started to recover. She is optimistic that she will recover and does not need to undergo any procedures. Attempts were made to financial health counselor her that she is only 52 years old and her best chance of resuming her baseline function would be to be transferred for a neuro eval and mechanical thrombectomy, however understanding all risks and benefits she refused to be transferred. She reports having uncontrolled hypertension. Review of home medication shows she takes lisinopril and hydrochlorothiazide. Denies having missed any doses recently. States that her previous strokes had all been attributed to hypertension. She denies any history of atrial fibrillation. Was never on any anticoagulation. She does not recall ever having any event monitors placed. Review of Systems General: Reports: 10 or more systems reviewed and unremarkable except in HPI and below Const: Denies: fever(s), chills or body aches Eyes: Denies: change in vision, blurry vision or photophobia ENMT: Reports: hoarseness; Denies: throat pain, enlarged tonsils, odynophagia or nasal congestion Card: Denies: chest pain, palpitations, irregular heart rhythm, edema, swelling of feet/ankles, lightheadedness, pre-syncope, dyspnea on exertion or orthopnea Resp: Denies: dyspnea, productive cough, non-productive cough, wheezing, stridor, pain on inspiration, change in phlegm color, hemoptysis or chest congestion GI: Denies: abdominal pain, nausea, vomiting, hematemesis, coffee ground emesis, dysphagia, heartburn, diarrhea, constipation, GI cramping, change in stool character, hematochezia or melena : Denies: flank pain, difficulty voiding, dysuria, urinary frequency, urinary urgency, urinary hesitancy or hematuria Musc: Denies: neck pain, back pain, extremity pain, joint swelling, joint warmth or deformity Neuro: Denies: headache(s), numbness in extremities, weakness in extremities, sensory changes, difficulty walking, frequent falls, dizziness, vertigo, behavioral changes, Slurred speech present or seizure-like activity Psych: Denies: anxiety, depression, suicidal ideation or homicidal ideation Endo: Denies: polyuria, polydipsia, tired all the time, cold intolerance or hot flashes Wiliam/Lymph: Denies: easy bruising or easy bleeding Medications/Allergies Home Medications Medication Instructions Recorded Confirmed Last Taken Type ibuprofen 200 mg tablet 600 mg PO Q6H PRN Pain 11/01/19 01/28/22 11/01/19 History lisinopril 20 1 tab PO BID 01/28/22 01/28/22 01/28/22 History mg-hydrochlorothiazide 12.5 mg tablet Allergies Allergy/AdvReac Type Severity Reaction Status Date / Time amoxicillin Allergy ALGY-Difficulty Verified 01/28/22 16:13 Breathing aspirin Allergy ADR-Itching Verified 01/28/22 21:42 latex Allergy ALGY-Rash Verified 01/28/22 16:13 Penicillins Allergy Unknown Verified 01/28/22 21:42 Sulfa (Sulfonamide Allergy ALGY-Hives Verified 01/28/22 16:13 Antibiotics) PFSH Acute PFSH: Medical History (Updated 01/28/22 @ 21:55 by Nancy Sánchez MD) History of multiple strokes Hypertension Surgical History H/O tubal ligation S/P tonsillectomy and adenoidectomy Social History Smoking and tobacco status: heavy tobacco smoker Alcohol intake: never Vitals/I&O/Wt Last Vital Signs Pulse 69 01/28/22 21:37 Resp 18 01/28/22 21:37 BP 218/82 01/28/22 21:37 Pulse Ox 93 01/28/22 21:37 O2 Del Method 01/28/22 21:37 Weight last 48 hrs Weight 108 kg Physical Exam Narrative: General: No acute distress, AO x3 HEENT: PERRLA, pupils bilaterally equal and reactive, pallors not present, dysarthria+ Chest: Normal vesicular breath sounds, no added sounds, equal good air entry bilaterally CVS: S1-S2 regular, no murmurs, no tachycardia, no gallops, no rubs Abdomen: Soft, nontender, no organomegaly, bowel sounds present Neuro: left side 1/5 both upper and lower extremities. dysartria+, facial asymmetry+ Data : 01/28/22 15:01 01/28/22 15:01 Other Labs: Radiology Impressions Head CT 01/28/22 14:55 IMPRESSION: 1. Chronic right superolateral thalamic lacunar infarction. 2. No acute intracranial abnormality identified. ASSESSMENT: ASPECTS (Samantha Stroke Program Early CT Score) is 10. ADDENDUM: 01/28/22 1519 THIS REPORT CONTAINS FINDINGS THAT MAY BE CRITICAL TO PATIENT CARE. The findings were verbally communicated by me to DR. GORDO MARQUEZ via telephone conference at 3:16 PM CDT on 01/28/2022. The findings were acknowledged and understood. Head/Neck CTA 01/28/22 15:20 IMPRESSION: 1. Severe stenosis proximal right posterior cerebral artery P1 segment. 2. Occlusion right posterior cerebral artery P2 segment. 3. Reconstitution right posterior cerebral artery P3 and peripheral segments, presumably via leptomeningeal collaterals. 4. Right internal carotid artery cavernous segment and clinoid segment moderate stenosis. IMPRESSION: 1. Severe (70%) left internal carotid artery origin short segment stenosis. 2. Recommend nonemergent thyroid sonography for further evaluation of a left thyroid masses. 3. Mild nonspecific mediastinal lymphadenopathy. COMMENTS: Consistent with the [employer] [employer]'s Incidental Findings Committee white paper (J Am Samantha Radiol 2015): In patients aged 35 years and older with an incidental thyroid nodule equal to or greater than 1.[address], MRI or extrathyroidal US, further evaluation with dedicated thyroid US is recommended for patients with normal life expectancy and without comorbidities. For smaller nodules without suspicious features, no further evaluation or follow up is recommended. REFERENCES: NASCET CRITERIA. The degree of stenosis in the cervical segment of the internal carotid artery is based on NASCET criteria. Normal is no stenosis. Mild is less than 50% stenosis. Moderate is 50-69% stenosis. Severe is 70% to 99% stenosis. Total occlusion is no detectable patent lumen. Laboratory Results WBC 11.0 10^3/uL (4.0-10.0) H 01/28/22 15:01 RBC 5.37 10^6/uL (4.1-5.3) H 01/28/22 15:01 Hgb 12.8 g/dL (11.5-15.3) 01/28/22 15:01 Hct 42.0 % (37.0-47.0) 01/28/22 15:01 MCV 78.2 fl (81-99) L 01/28/22 15:01 MCH 23.8 pg (28.0-34.0) L 01/28/22 15:01 MCHC 30.5 g/dL (30.0-36.0) 01/28/22 15:01 RDW 18.6 % (12.1-15.1) H 01/28/22 15:01 Plt Count 246 10^3/cmm (130-400) 01/28/22 15:01 MPV 10.6 fL (7.4-10.4) H 01/28/22 15:01 Neut % (Auto) 73.2 % 01/28/22 15:01 Lymph % (Auto) 16.3 % 01/28/22 15:01 [place] % (Auto) 5.5 % 01/28/22 15:01 Eos % (Auto) 3.5 % 01/28/22 15:01 Baso % (Auto) 0.7 % 01/28/22 15:01 Neut # (Auto) 8.02 10^3/uL (1.8-7.7) H 01/28/22 15:01 Lymph # (Auto) 1.8 10^3/uL (0.8-4.8) 01/28/22 15:01 [place] # (Auto) 0.6 10^3/uL (0.2-0.9) 01/28/22 15:01 Eos # (Auto) 0.4 10^3/uL (0.0-0.8) 01/28/22 15:01 Baso # (Auto) 0.1 10^3/uL (0.0-0.1) 01/28/22 15:01 Nucleated RBC % (auto) 0 % 01/28/22 15:01 Nucleated RBCs # 0.0 /100WBC 01/28/22 15:01 PT 13.50 SECONDS (12.1-14.9) 01/28/22 15:01 INR 1.00 (0.8-1.2) 01/28/22 15:01 APTT 29.2 SECONDS (23.9-36.7) 01/28/22 15:01 Sodium 135 mmol/L (136-145) L 01/28/22 15:01 Potassium 3.9 mmol/L (3.5-5.1) 01/28/22 15:01 Chloride 97 mmol/L (98-107) L 01/28/22 15:01 Carbon Dioxide 25 mmol/L (22-29) 01/28/22 15:01 Anion Gap 16.9 (5-19) 01/28/22 15:01 BUN 12 mg/dL (6-20) 01/28/22 15:01 Creatinine 0.7 mg/dL (0.5-0.9) 01/28/22 15:01 GFR Calculation 87.2 mL/min (90-130) L 01/28/22 15:01 Glucose 122 mg/dL (65-115) H 01/28/22 15:01 POC Glucose 123 mg/dL (70-110) H 01/28/22 15:03 Calculated Osmolality 281 mOsm/kg (285-295) L 01/28/22 15:01 Calcium 9.6 mg/dL (8.5-10.5) 01/28/22 15:01 Total Bilirubin 0.6 mg/dL (0.15-1.2) 01/28/22 15:01 AST 11 U/L (0-32) 01/28/22 15:01 ALT 12 U/L (0-33) 01/28/22 15:01 Alkaline Phosphatase 116 U/L (35-105) H 01/28/22 15:01 Total Protein 6.6 g/dL (6.6-8.7) 01/28/22 15:01 Albumin 4.0 g/dL (3.5-5.2) 01/28/22 15:01 Globulin 2.6 g/dL (1.3-4.6) 01/28/22 15:01 Urine Color Yellow (Yellow) 01/28/22 19:12 Urine Appearance Clear (CLEAR) 01/28/22 19:12 Urine pH 5 (5-7) 01/28/22 19:12 Ur Specific [place] 1.005 (1.005-1.030) 01/28/22 19:12 Urine Protein 1+ (Negative) H 01/28/22 19:12 Urine Glucose (UA) Norm (Normal) 01/28/22 19:12 Urine Ketones 1+ (Negative) H 01/28/22 19:12 Urine Blood 3+ (Negative) H 01/28/22 19:12 Urine Nitrate Negative (Negative) 01/28/22 19:12 Urine Bilirubin Neg (Negative) 01/28/22 19:12 Urine Urobilinogen Norm mg/dL (Negative) 01/28/22 19:12 Ur Leukocyte Esterase Negative (Negative) 01/28/22 19:12 Urine RBC 5-10 /hpf (0-2) H 01/28/22 19:12 Urine WBC 0-4 /hpf (0-5) H 01/28/22 19:12 Ur Squamous Epith Cells 0-4 /hpf (0-5) H 01/28/22 19:12 Amorphous Sediment Not Reportable 01/28/22 19:12 Urine Bacteria Trace /hpf (NONE) 01/28/22 19:12 A&P Assessment and plan (1) Left-sided weakness: (2) 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 Profound left-sided weakness, dysarthria. NIH stroke scale 18 upon presentation. Patient out of tPA window, however within the window for mechanical thrombectomy. Patient is alert awake oriented and has refused to transfer to higher center for thrombectomy. She understands the risks and benefits. Daughter is at bedside, multiple attempts to convince the patient to transfer have not been successful. She elects to stay at [facility]. Patient is allergic to aspirin, reports that allergy is that her throat closes up, possible anaphylaxis. We will start her on Plavix 75 mg p.o. daily. Additionally start atorvastatin 40 mg p.o. daily. Check lipid panel, HbA1c to assess for additional risk factors. Allow for permissive hypertension post acute stroke for now. N.p.o. until speech evaluation. She may have some ice chips. PT OT assessment. Aspiration precautions in the interim. Head and neck CTA as noted above. Telemetry monitoring to evaluate for any underlying arrhythmia such as atrial fibrillation given recurrent strokes. Check echocardiogram incidentally noted left thyroid masses -defer outpatient work-up. Attestations Medical Necessity Statement*: Anticipate greater than 2 midnight admission for stroke care, therapy assessments, disposition planning. 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
--- NOTE | 2022-01-28 22:00 | PC.NURSE ---
Attempted NIHSS on patient, but pt says im fine, its fine during parts of the exam and will not complete exam. Pt continues to be alert and oriented. More cooperative at this time, just doesn't want to complete scale.
[2022-01-28] MEDS: enoxaparin 30 mg/0.3 mL Syringe SUBCUT (23:23)
[2022-01-28] MEDS: atorvastatin 40 mg Tablet PO (23:24)
[2022-01-28 23:39] LABS: Glucose Point of Care 161 mg/dL (70-110)
[2022-01-29] VITALS (17 sets, daily range): BP systolic 173–189; BP diastolic 74–95; PULSE 50–69; RESP 14–20; TEMP 36.4–36.9; O2SAT 88–98
[2022-01-29 05:23] LABS: Estmated Average Glucose 174; Hemoglobin A1C 7.7 % (4.0-6.0)
[2022-01-29 05:45] LABS: Chol HDL Ratio 3.84 mg/dL (0.0-4.40); Cholesterol 142 mg/dL (0-200); HDL Cholesterol 37 mg/dL (60-100); LDL Cholesterol Calculated 61 mg/dL (50-129); LDL HDL Ratio 1.65 RATIO (0.00-3.22); Triglycerides 218 mg/dL (0-150)
--- NOTE | 2022-01-29 06:00 | USCV_ITS ---
Zahira Blood Age: 52 Gender: F : 1970 Exam Date: 01/29/2022 01:12 Ordering Phys: Nancy Sánchez MD Technologist: MARY Exam Location: [facility] [place] Indication: CVA -- altered mental status -- No history of cardiac intervention per daughter. BP: 184 / 92 HR: 50 Rhythm: Sinus bradlycardia Technical Quality: Adequate MEASUREMENTS (Male / Female) Normal Values 2D ECHO LV Diastolic Diameter PLAX 4.6 cm 4.2 - 5.9 / 3.9 - 5.3 cm LV Systolic Diameter PLAX 3.0 cm IVS Diastolic Thickness 1.6 cm 0.6 - 1.0 / 0.6 - 0.9 cm IVS Systolic Thickness 1.9 cm LVPW Diastolic Thickness 1.4 cm 0.6 - 1.0 / 0.6 - 0.9 cm LVPW Systolic Thickness 1.7 cm LVOT Diameter 2.1 cm LV Ejection Fraction 2D Teich 64.9 % LV Ejection Fraction MOD 2C 56.3 % LV Ejection Fraction 2C AL 57.8 % LA Diameter 4.4 cm LA Width 4.7 cm LA Height 6.1 cm RA Width 3.8 cm RA Height 4.1 cm Aorta at Sinotubular Diameter 2.7 cm IVC Diameter 1.8 cm M-MODE Aortic Annulus Diameter 2.9 cm LA Ao Ratio MM 1.7 MV E Point Septal Separation 0.5 cm DOPPLER AV Peak Velocity 139.0 cm/s LVOT Peak Velocity 85.0 cm/s AV Area Cont Eq vti 2.3 cm squared AV Area Cont Eq pk 2.1 cm squared MV Peak Velocity 99.0 cm/s MV Area PHT 2.6 cm squared Mitral E to A Ratio 0.9 MV E' Velocity 49.0 cm/s Mitral E to MV E' Ratio 13.5 Mitral E to LV E' Lateral Ratio 13.5 Mitral E to LV E' Septal Ratio 13.7 TR Peak Velocity 238.0 cm/s TR Peak Gradient 22.7 mmHg TV Peak E Velocity 50.0 cm/s Right Atrial Pressure 5.0 mmHg Pulmonary Artery Systolic Pressu 27.7 mmHg PV Peak Velocity 104.0 cm/s RV Acceleration Time 0.1 s RV Ejection Time 0.4 s RV AcT/ET 0.2 FINDINGS Left Ventricle Left ventricle is normal size. LV systolic function is normal with EF of 55 to 60%. No regional wall motion abnormalities are seen. Grade 1 diastolic dysfunction Right Ventricle Normal in size and function Right Atrium Normal in size Left Atrium Mildly dilated left atrium Mitral Valve Mild mitral annular calcification. No significant stenosis or regurgitation Aortic Valve Grossly normal. No signfiicant stenosis or regurgitation Tricuspid Valve Trace tricuspid regurgitation. Insufficient TR jet to calculate RVSP Pulmonic Valve Trace pulmonic regurgitation Pericardium Normal Aorta Normal in size IVC CONCLUSIONS LV systolic function is normal with EF of 55 to 60% Grade 1 diastolic dysfunction Mild mitral annular calcification. Mildly dilated left atrium Trace tricuspid regurgitation Trace pulmonic regurgitation No comparison studies are available Paul Callahan MD (Electronically Signed) Final Date: 29 January 2022 14:14 S
[2022-01-29 06:54] LABS: Glucose Point of Care 169 mg/dL (70-110)
--- NOTE | 2022-01-29 08:20 | US_ITS ---
WS: [id number] THYROID ULTRASOUND HISTORY: thyroid mass COMPARISON: None available. Right lobe: 1.7 cm x 2.0 cm x 2.7 cm (w x ap x l). Volume: 4.8 cm3. Normal size and echotexture. No significant are dominant nodules are present. Left lobe: 4.6 cm x 2.6 cm x 5.8 cm (w x ap x l). Volume: 36.0 cm3. Enlarged thyroid. Cystic and solid mass. This may be one contiguous nodule or 2 separate nodules. The re are cystic and solid components. The entire mass measures approximately 4.5 x 2.6 x 5.8 cm. No sig nificant increased vascularity. Isthmus: 0.3 cm. US/US thyroid [id number] IMPRESSION: 1. Large complex cystic nodule in the LEFT thyroid. No increased vascularity. Typically cystic nodules are more likely benign. Recommend 6 month thyroid ultr asound follow-up to document stability. 2. No RIGHT thyroid nodules.
[2022-01-29 09:31] LABS: Thyroid Stimulating Hormone 1.37 uIU/mL (0.27-4.20)
--- NOTE | 2022-01-29 09:48 | XRR_ITS ---
PROCEDURE INFORMATION: Exam: XR Chest Exam date and time: 01/29/2022 9:57 AM Age: 52 years old Clinical indication: Shortness of breath; Additional info: SOB TECHNIQUE: Imaging protocol: Radiologic exam of the chest. Views: 1 view. COMPARISON: CT angio headneck* [id number] 01/28/2022 3:44 PM FINDINGS: Lungs: There is mildly increased lung markings, which in the setting of cardiomegaly suggestive of mild pulmonary congestion. Pneumonia should be excluded clinically. Pleural spaces: Unremarkable. No pleural effusion. No pneumothorax. Heart/Mediastinum: Mildly enlarged heart. Bones/joints: Unremarkable. XR/XR chest 1V portable [id number] IMPRESSION: Imaging findings suggestive of mild pulmonary congestion. Pneumonia should be excluded clinically.
[2022-01-29] MEDS: clopidogrel 75 mg Tablet PO (09:55)
[2022-01-29] MEDS: sodium chloride 0.9% 1,000 ML 75 ML IV ×2 (09:58→19:47)
[2022-01-29 10:51] LABS: ABG PCO2 42.7 mmHg (35-45); ABG PH Result 7.42 (7.35-7.45); Arterial Blood Gas Hematocrit 38.7 % (37-47); Base Excess ABG 2.5 mmol/L (-2.0-2.0); Blood Gas Allen Test Pos; Blood Gas Operator Identificat glc; Blood Gas Sample Site Radial, right; Blood Gas Sample Type Arterial; HCO3 ABG 27.5 mmol/L (22-26); Oxygen Device NC; PO2 ABG 66.7 mmHg (80.0-100.0)
[2022-01-29 11:14] LABS: Procalcitonin 0.04 ng/mL (0-0.5)
[2022-01-29 11:41] LABS: Lactate (Lactic Acid level) 0.6 mmol/L (0.5-2.2)
--- NOTE | 2022-01-29 12:00 | P.PN_ITS ---
Subjective Subjective: Patient was seen this morning, her daughter is at bedside -Currently she left-sided facial droop, slurring of her words, strength in left upper extremity is 1 out of 5, strength in left lower extremity is 0 out of 5 -Patient's daughter told me that patient has had intermittent episodes of left-sided weakness for some time, however she would always return back to her normal that is why she refused any transfer and she want to go home, because she felt her symptoms would go away -She is alert to person, to place, time to time, she follows commands -The first thing that she says to me when I enter the room is she does not want to go to a skilled nursing, and she is anxious about smoking -She is also coughing, on 2 L -I discussed with all parties involved my concerns -She has had had a large right-sided CVA with significant left-sided neurologic deficits, I also have concerns for aspiration, aspiration pneumonia -She also has newly diagnosed type 2 diabetes -She also has a left thyroid nodule that needs further work-up -She also found to have severe 70% left internal carotid arteries short segment stenosis, discussed surgical intervention, surgical evaluation, however she declines for now -However on admission patient declined transfer for thrombectomy procedure that my opinion would have significantly given her a chance for optimal outcome, now she is out of the thrombectomy window, and only medical management is her option -Even in the emergency room she wanted to leave AGAINST MEDICAL ADVICE, and she was convinced to stay for hospitalization -I discussed with patient and her family my concerns for her morbidity and mortality given her large CVA, now concerns for aspiration, aspiration pneumonitis, aspiration pneumonia, type 2 diabetes, history of smoking, underlying COPD -However patient's only concern is that she wants to go home, that she does not want to go to skilled nursing -I discussed the process of CVA, concerns for hemorrhagic transformation, permissive hypertension, monitoring for complications, extensive physical therapy, speech therapy, monitoring for aspiration, -I advised her that she is young, she is 52 years old, I want the optimal outcome for her, I want to ensure that she gets the optimal treatment, and optimal outcome, although in my opinion she had a poor choice from not being transferred for thrombectomy because she wanted to go home -I discussed what the rehab involves after a CVA, extensive physical therapy, speech therapy, extensive involvement of family members to have an optimal outcome, so that she can have some semblance of a normal life, so that she can try to improve her quality of life -Her daughter also tells me that her mom has been voicing to leave AGAINST MEDICAL ADVICE -Currently patient's in her right of mind to make decisions for herself -I discussed with patient that I want to help her, I am here for her, and I want the best outcome for her, but if she does not follow our recommendations, then only she is responsible for her outcome -I also was clear with patient and family that if she wants to leave AGAINST ME DICAL ADVICE, and that is her wish, then she accepts including but not limited to the morbidity and mortality associated with leaving AGAINST MEDICAL ADVICE, morbidity and mortality associated with CVAs, complications of CVA -Her daughter and patient voiced understanding, all questions answered agreed to proceed with hospitalization Vitals/I&O/Wt Last Vital Signs Temp 98.2 F 01/29/22 07:09 Pulse 50 L 01/29/22 08:47 Resp 16 01/29/22 07:09 BP 179/86 01/29/22 07:09 Pulse Ox 88 L 01/29/22 08:47 O2 Del Method 01/29/22 08:47 O2 Flow Rate 3 01/29/22 10:55 Weight last 48 hrs Weight 108 kg Physical Exam Const: COMMON NORMALS: no acute distress Eye: COMMON NORMALS: Equal, round and reactive pupils present and EOMs intact bilaterally PUPIL: Yes Equal, round and reactive pupils present OTHER: Difficult for patient to follow instructions for visual field testing Neck/C-Spine: COMMON NORMALS: no JVD Resp: COMMON NORMALS: normal respiratory effort, No retractions and No use of accessory muscles Cardio: COMMON NORMALS: no JVD, regular rate, regular rhythm, S1 normal heart sound present and S2 normal heart sound present RATE: regular rate RHYTHM: regular rhythm HEART SOUNDS: S1 normal heart sound present and S2 normal heart sound present GI: COMMON NORMALS: Normal to inspection, nondistended, normoactive bowel sounds present and non-tender Extremity: COMMON NORMALS: no pedal edema Neuro: OTHER: Alert to x3, left facial droop, slurring of her words, left upper extremity strength 1 out of 5, at the level of her hands, but the rest of the upper extremity strength is 0-5, left lower extremity strength, 0 out of 5, no receptive aphasia Data : 01/28/22 15:01 01/28/22 15:01 Micro: Microbiology 01/29/22 11:16 Blood Culture - Preliminary Blood SPECIMEN COLLECTED 01/29/22 11:12 Blood Culture - Preliminary Blood SPECIMEN COLLECTED A&P Assessment and plan (1) Left-sided weakness: (2) Acute ischemic right GARBAGE PICK UP MAN stroke: (3) Type 2 diabetes mellitus: (4) Left carotid artery stenosis: (5) Aspiration pneumonitis: (6) Aspiration pneumonia: (7) COPD (chronic obstructive pulmonary disease): (8) Smoking: Plan Patient presenting to patient presenting today for an acute stroke. Profound left-sided weakness, dysarthria, left-sided facial droop. NIH stroke scale 18 upon presentation. Patient out of tPA window, however within the window for mechanical thrombectomy. Patient is alert awake oriented and has refused to transfer to higher center for thrombectomy. She understands the risks and benefits. Daughter is at bedside, multiple attempts to convince the patient to transfer were unsuccessful, out of thrombectomy window She elects to stay at [facility], however does not want to go to skilled nursing, understands morbidity and mortality and poor outcome associated with suboptimal treatment of her CVA, and wants to leave AGAINST MEDICAL ADVICE at times Patient is allergic to aspirin, reports that allergy is that her throat closes up, possible anaphylaxis. We will start her on Plavix 75 mg p.o. daily. Additionally start atorvastatin 40 mg p.o. daily. Hemoglobin A1c 7.7, type 2 diabetes mellitus, start low-dose sliding scale Allow for permissive hypertension post acute stroke for now. N.p.o. until speech evaluation. She may have some ice chips. PT OT assessment. Has evidence of aspiration pneumonia, aspiration pneumonitis, aspiration precautions, start Rocephin and azithromycin Head and neck CTA as noted above. We will order MRI of the brain Telemetry monitoring to evaluate for any underlying arrhythmia such as atrial fibrillation given recurrent strokes. Check echocardiogram incidentally noted left thyroid masses, will order thyroid ultrasound Full code Lovenox for DVT prophylaxis Discussed leaving AGAINST MEDICAL ADVICE, morbidity and mortality associated, she boisterously, all questions answered agreed to proceed Attestations Medical Necessity Statement*: Patient requires hospitalization for acute CVA Coding Level of Care Code Acute Slot Machine Key Person for Shiv[employer] Fwd Diagnoses Left-sided weakness R53.1 Acute ischemic right GARBAGE PICK UP MAN stroke I63.531 Type 2 diabetes mellitus E11.9 Left carotid artery stenosis I65.22 Aspiration pneumonitis J69.0 Aspiration pneumonia J69.0 COPD (chronic obstructive pulmonary disease) J44.9 Smoking F17.200
[2022-01-29] MEDS: cefTRIAXone 1,000 MG in sodium chloride 0.9% (plus) 50 ML 100 MG IV (12:04)
[2022-01-29] MEDS: insulin lispro 100 unit/1 mL SUBCUT (12:20)
[2022-01-29] MEDS: azithromycin 500 MG in sodium chloride 0.9% 250 ML 250 MG IV (13:23)
[2022-01-29 14:45] LABS: NT Pro B Type Natriuretic Pept 213 pg/mL (0-125)
[2022-01-29 16:09] LABS: Glucose Point of Care 134 mg/dL (70-110)
[2022-01-29] MEDS: morphine 4 mg/mL SDV 1 mL 1 MG IVP (18:31)
--- NOTE | 2022-01-29 19:00 | PC.NURSE ---
Bedside Report Given to Nathaniel GILLIAM at this time
--- NOTE | 2022-01-29 19:45 | PC.NURSE ---
Patient unable to be aroused enough to swallow PO medications. Family at bedside stated that they do not want patient to receive Morphine anymore because it makes her extremely drowsy.
[2022-01-29] MEDS: enoxaparin 30 mg/0.3 mL Syringe SUBCUT (19:47)
[2022-01-29] MEDS: ipratropium-albuterol 3 mL Neb INHALATION (20:43)
[2022-01-29] MEDS: budesonide 0.5 mg/2 mL Neb INHALATION (20:44)
--- NOTE | 2022-01-29 21:25 | PC.NURSE ---
Blood noted in patient's brief. Patient states that she is on her period.
[2022-01-29] MEDS: lanolin oint 7 gm 1 APPLIC TOPICAL (21:50)
--- NOTE | 2022-01-29 22:51 | PC.NURSE ---
One family member at bedside stated to this nurse that she would like the other family member to be removed from the room. This nurse did not witness any behavior from either family member that required to have either of them removed. Patient is currently alert and oriented x4. Family member was educated that it is the patient's decision for who she does and does not want at bedside.
[2022-01-30] VITALS (11 sets, daily range): BP systolic 160–221; BP diastolic 59–89; PULSE 49–72; RESP 12–20; TEMP 36.4–37; O2SAT 92–94
[2022-01-30] MEDS: ipratropium-albuterol 3 mL Neb INHALATION ×2 (07:41→21:15)
[2022-01-30] MEDS: budesonide 0.5 mg/2 mL Neb INHALATION ×2 (07:41→21:15)
[2022-01-30 08:07] LABS: Glucose Point of Care 129 mg/dL (70-110)
[2022-01-30 11:34] LABS: Glucose Point of Care 135 mg/dL (70-110)
[2022-01-30] MEDS: azithromycin 500 MG in sodium chloride 0.9% 250 ML 250 MG IV (11:34)
[2022-01-30] MEDS: cefTRIAXone 1,000 MG in sodium chloride 0.9% (plus) 50 ML 100 MG IV (11:34)
[2022-01-30] MEDS: sodium chloride 0.9% 1,000 ML 75 ML IV ×2 (11:34→20:00)
[2022-01-30 11:39] LABS: Basophils # 0.1 10^3/uL (0.0-0.1); Basophils % 0.6 %; Eosinophils # 0.2 10^3/uL (0.0-0.8); Eosinophils % 1.7 %; Hematocrit 40.4 % (37.0-47.0); Hemoglobin 11.8 g/dL (11.5-15.3); Lymphocytes # 1.7 10^3/uL (0.8-4.8); Lymphocytes % 19.5 %; Mean Corpuscular HGB Conc 29.2 g/dL (30.0-36.0); Mean Corpuscular Hemoglobin 24.4 pg (28.0-34.0); Mean Corpuscular Volume 83.5 fl (81-99); Mean Platelet Volume 10.3 fL (7.4-10.4); Monocytes # 0.5 10^3/uL (0.2-0.9); Monocytes % 5.6 %; Neutrophils # 6.36 10^3/uL (1.8-7.7); Neutrophils % 71.9 %; Nucleated Red Blood Cells % 0 %; Platelet Count 196 10^3/cmm (130-400); Red Blood Count 4.84 10^6/uL (4.1-5.3); Red Cell Distribution Width 18.5 % (12.1-15.1); White Blood Count 8.9 10^3/uL (4.0-10.0)
[2022-01-30 11:59] LABS: Alanine Aminotransferase 10 U/L (0-33); Albumin Level 3.3 g/dL (3.5-5.2); Alkaline Phosphatase 86 U/L (35-105); Anion Gap 12.9 (5-19); Aspartate Amino Transferase 11 U/L (0-32); Blood Urea Nitrogen 10 mg/dL (6-20); Calcium 8.4 mg/dL (8.5-10.5); Carbon Dioxide 23 mmol/L (22-29); Chloride 104 mmol/L (98-107); Globulin 2.5 g/dL (1.3-4.6); Glomerular Filtration Rate 87.2 mL/min (90-130); Glucose 120 mg/dL (65-115); Magnesium 2.1 mg/dL (1.7-2.3); Osmolality Calculated 282 mOsm/kg (285-295); Potassium 3.9 mmol/L (3.5-5.1); Sodium 136 mmol/L (136-145); Total Bilirubin 0.5 mg/dL (0.15-1.2); Total Protein 5.8 g/dL (6.6-8.7)
--- NOTE | 2022-01-30 13:54 | PM.PN ---
Subjective Subjective: Patient was seen this morning, she continues to have left-sided facial droop, left upper extremity and lower extremity flaccid paralysis, it was also discovered, today that she cannot see out of her left eye, she is blind, she is alert to person, to place, not to time, she is a bit more confused, potentially having some receptive aphasia she has left-sided neglect, continues to have concerns for aspiration, remains n.p.o. Vitals/I&O/Wt Last Vital Signs Temp 98.3 F 01/30/22 12:00 Pulse 58 L 01/30/22 12:00 Resp 16 01/30/22 12:00 BP 167/71 01/30/22 12:22 Pulse Ox 94 01/30/22 12:00 O2 Del Method 01/30/22 12:00 O2 Flow Rate 4 01/30/22 07:44 01/29/22 01/30/22 01/30/22 22:59 06:59 14:59 Intake Total 986.25 / 1036.25 1000 / 1000 Balance 986.25 / 1036.25 1000 / 1000 Weight last 48 hrs Weight 108 kg Physical Exam Const: COMMON NORMALS: no acute distress Resp: COMMON NORMALS: normal respiratory effort, No retractions, No use of accessory muscles and clear to auscultation bilaterally AUSCULTATION: clear to auscultation bilaterally Cardio: COMMON NORMALS: regular rate, regular rhythm, S1 normal heart sound present and S2 normal heart sound present RATE: regular rate RHYTHM: regular rhythm HEART SOUNDS: S1 normal heart sound present and S2 normal heart sound present GI: COMMON NORMALS: Normal to inspection, nondistended, normoactive bowel sounds present and non-tender Data : 01/30/22 11:28 01/30/22 11:28 Micro: Microbiology 01/29/22 11:16 Blood Culture - Preliminary Blood NEGATIVE TO DATE 01/29/22 11:12 Blood Culture - Preliminary Blood NEGATIVE TO DATE A&P Assessment and plan (1) Left-sided weakness: (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 Profound left-sided weakness, dysarthria, left-sided facial droop. NIH stroke scale 18 upon presentation. Patient out of tPA window, however within the window for mechanical thrombectomy. Patient is alert awake oriented and has refused to transfer to higher center for thrombectomy. She understands the risks and benefits. Daughter is at bedside, multiple attempts to convince the patient to transfer were unsuccessful, out of thrombectomy window She elects to stay at [facility], however does not want to go to [facility], understands morbidity and mortality and poor outcome associated with suboptimal treatment of her CVA, and wants to leave AGAINST MEDICAL ADVICE at times Patient is allergic to aspirin, reports that allergy is that her throat closes up, possible anaphylaxis. On examination today has left-sided flaccid paralysis, left facial droop, left eye blindness, some degree of receptive aphasia, left-sided neglect, slurring of her words, concerns for aspiration We will start her on Plavix 75 mg p.o. daily. Additionally start atorvastatin 40 mg p.o. daily. Hemoglobin A1c 7.7, type 2 diabetes mellitus, start low-dose sliding scale Allow for permissive hypertension post acute stroke for now. Continues to have concerns for aspiration, continue IV fluids, continue speech therapy eval PT OT assessment. Has evidence of aspiration pneumonia, aspiration pneumonitis, aspiration precautions, start Rocephin and azithromycin Head and neck CTA as noted above. Declined MRI of the the brain Telemetry monitoring to evaluate for any underlying arrhythmia such as atrial fibrillation given recurrent strokes. 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
[2022-01-30 16:58] LABS: Glucose Point of Care 146 mg/dL (70-110)
[2022-01-30] MEDS: enoxaparin 30 mg/0.3 mL Syringe SUBCUT (19:59)
[2022-01-30 21:03] LABS: Glucose Point of Care 101 mg/dL (70-110)
--- NOTE | 2022-01-30 22:32 | PC.NURSE ---
Patient states that she is okay with Emma receving information about her, but that she does not want her to visit.
[2022-01-31] VITALS (12 sets, daily range): BP systolic 153–190; BP diastolic 63–84; PULSE 45–65; RESP 12–18; TEMP 36.7–36.9; O2SAT 91–95
[2022-01-31 04:11] LABS: Basophils # 0.1 10^3/uL (0.0-0.1); Basophils % 0.7 %; Eosinophils # 0.2 10^3/uL (0.0-0.8); Eosinophils % 2.3 %; Hematocrit 34.2 % (37.0-47.0); Hemoglobin 10.3 g/dL (11.5-15.3); Lymphocytes # 1.6 10^3/uL (0.8-4.8); Lymphocytes % 17.9 %; Mean Corpuscular HGB Conc 30.1 g/dL (30.0-36.0); Mean Corpuscular Hemoglobin 24.2 pg (28.0-34.0); Mean Corpuscular Volume 80.5 fl (81-99); Mean Platelet Volume 10.4 fL (7.4-10.4); Monocytes # 0.5 10^3/uL (0.2-0.9); Monocytes % 5.9 %; Neutrophils # 6.43 10^3/uL (1.8-7.7); Neutrophils % 72.5 %; Nucleated Red Blood Cells % 0 %; Platelet Count 195 10^3/cmm (130-400); Red Blood Count 4.25 10^6/uL (4.1-5.3); Red Cell Distribution Width 18.1 % (12.1-15.1); White Blood Count 8.9 10^3/uL (4.0-10.0)
[2022-01-31 04:40] LABS: Alanine Aminotransferase 9 U/L (0-33); Alkaline Phosphatase 92 U/L (35-105); Anion Gap 12.6 (5-19); Aspartate Amino Transferase 11 U/L (0-32); Blood Urea Nitrogen 9 mg/dL (6-20); Calcium 7.9 mg/dL (8.5-10.5); Carbon Dioxide 23 mmol/L (22-29); Chloride 107 mmol/L (98-107); Globulin 2.6 g/dL (1.3-4.6); Glomerular Filtration Rate 104.2 mL/min (90-130); Glucose 108 mg/dL (65-115); Magnesium 2.1 mg/dL (1.7-2.3); Osmolality Calculated 287 mOsm/kg (285-295); Phosphorus 2.6 mg/dL (2.5-4.5); Potassium 3.6 mmol/L (3.5-5.1); Sodium 139 mmol/L (136-145); Total Bilirubin 0.4 mg/dL (0.15-1.2); Total Protein 5.6 g/dL (6.6-8.7)
[2022-01-31 06:57] LABS: Glucose Point of Care 106 mg/dL (70-110)
[2022-01-31] MEDS: ipratropium-albuterol 3 mL Neb INHALATION ×2 (07:36→19:27)
[2022-01-31] MEDS: budesonide 0.5 mg/2 mL Neb INHALATION ×2 (07:36→19:27)
[2022-01-31 10:57] LABS: Glucose Point of Care 122 mg/dL (70-110)
[2022-01-31] MEDS: amlodipine 10 mg Tablet PO (11:48)
[2022-01-31] MEDS: clopidogrel 75 mg Tablet PO (11:48)
--- NOTE | 2022-01-31 12:06 | PC.NURSE ---
dr guyed waiting to give pt her AM meds until she was seen by speech therapy to evaluate her swallow...see speech therapy notes pt was given her AM po meds in pudding at this time ...tolerated well without coughing or choking
[2022-01-31] MEDS: cefTRIAXone 1,000 MG in sodium chloride 0.9% (plus) 50 ML 100 MG IV (12:38)
--- NOTE | 2022-01-31 13:49 | PM.PN ---
Subjective Subjective: Patient was seen this morning, family is at bedside, she is much more alert awake, she is alert to person, to place, to time, -The following discussion was made in front of the patient's daughter -I discussed my concerns for her recurrent aspiration risk, or difficulties with speech therapy evaluations, she is a high risk of aspiration but will have speech therapy reevaluate her today as her swallowing function continues to be an issue -But will do a formal modified barium swallow test tomorrow -I advised family that she might require PEG tube for nutrition as I feel her oral intake might be not enough to maintain her calorie intake, and with her concerns for aspiration, she does have a high aspiration risk -Patient adamantly declines PEG tube placement -Patient also again declines custodial placement Vitals/I&O/Wt Last Vital Signs Temp 98.5 F 01/31/22 12:00 Pulse 53 L 01/31/22 12:00 Resp 16 01/31/22 12:00 BP 179/73 01/31/22 12:00 Pulse Ox 95 01/31/22 12:00 O2 Del Method 01/31/22 12:00 O2 Flow Rate 3 01/31/22 07:39 01/30/22 01/31/22 01/31/22 22:59 06:59 14:59 Intake Total 932.5 / 1932.5 1000 / 1000 Balance 932.5 / 1932.5 1000 / 1000 Physical Exam Const: COMMON NORMALS: no acute distress and patient oriented x3 Resp: COMMON NORMALS: normal respiratory effort, No retractions, No use of accessory muscles and clear to auscultation bilaterally AUSCULTATION: clear to auscultation bilaterally Cardio: COMMON NORMALS: regular rate, regular rhythm, S1 normal heart sound present and S2 normal heart sound present RATE: regular rate RHYTHM: regular rhythm HEART SOUNDS: S1 normal heart sound present and S2 normal heart sound present GI: COMMON NORMALS: Normal to inspection, nondistended, normoactive bowel sounds present, non-tender and no masses Extremity: COMMON NORMALS: no pedal edema Neuro: COMMON NORMALS: patient oriented x3 Data : 01/31/22 03:05 01/31/22 03:05 Micro: Microbiology 01/29/22 11:16 Blood Culture - Preliminary Blood NEGATIVE TO DATE 01/29/22 11:12 Blood Culture - Preliminary Blood NEGATIVE TO DATE A&P Assessment and plan (1) Left-sided weakness: (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 Profound left-sided weakness, dysarthria, left-sided facial droop. NIH stroke scale 18 upon presentation. Patient out of tPA window, however within the window for mechanical thrombectomy. Patient is alert awake oriented and has refused to transfer to higher center for thrombectomy. She understands the risks and benefits. Daughter is at bedside, multiple attempts to convince the patient to transfer were unsuccessful, out of thrombectomy window She elects to stay at [facility], however does not want to go to custodial, understands morbidity and mortality and poor outcome associated with suboptimal treatment of her CVA, Patient is allergic to aspirin, reports that allergy is that her throat closes up, possible anaphylaxis. On examination today has left-sided flaccid paralysis, left facial droop, left eye blindness, some degree of receptive aphasia, left-sided neglect, slurring of her words, recurrent concerns for aspiration Continue Plavix 75 mg p.o. daily. Continue atorvastatin 40 mg p.o. daily. Add Norvasc 10 mg once daily Hemoglobin A1c 7.7, type 2 diabetes mellitus, start low-dose sliding scale Has completed permissive hypertension window Continues to have concerns for aspiration, continue IV fluids, continue speech therapy eval PT OT assessment. Has evidence of aspiration pneumonia, aspiration pneumonitis, aspiration precautions, speech therapy eval, modified barium swallow tomorrow Rocephin azithromycin for aspiration pneumonia concern Patient declines PEG tube placement Head and neck CTA as noted above. Declined MRI of the the brain Telemetry monitoring to evaluate for any underlying arrhythmia such as atrial fibrillation given recurrent strokes. Echocardiogram shows EF of 55 to 65% incidentally noted left thyroid masses will need to follow-up as outpatient Full code Lovenox for DVT prophylaxis Has voiced leaving AGAINST MEDICAL ADVICE in the past, none currently Work on placing at [facility] bed, she declines custodial placement Attestations Medical Necessity Statement*: Patient requires hospitalization for left-sided CVA, aspiration pneumonia, aspiration pneumonitis, swallowing dysfunction after stroke Coding Level of Care Code Acute Assisted Living Administrator for Marko Fwtulio Diagnoses Left-sided weakness R53.1 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
[2022-01-31] MEDS: azithromycin 500 MG in sodium chloride 0.9% 250 ML 250 MG IV (14:09)
[2022-01-31 16:57] LABS: Glucose Point of Care 116 mg/dL (70-110)
[2022-01-31] MEDS: sodium chloride 0.9% 1,000 ML 75 ML IV (17:50)
[2022-01-31] MEDS: enoxaparin 30 mg/0.3 mL Syringe SUBCUT (20:04)
[2022-01-31 21:20] LABS: Glucose Point of Care 141 mg/dL (70-110)
[2022-02-01] VITALS (11 sets, daily range): BP systolic 140–171; BP diastolic 60–72; PULSE 47–60; RESP 14–24; TEMP 36.6–36.8; O2SAT 88–95
[2022-02-01] MEDS: morphine 4 mg/mL SDV 1 mL 1 MG IVP ×2 (01:16→05:38)
[2022-02-01 04:52] LABS: Basophils % 0.5 %; Eosinophils # 0.3 10^3/uL (0.0-0.8); Eosinophils % 3.1 %; Hematocrit 34.5 % (37.0-47.0); Hemoglobin 10.6 g/dL (11.5-15.3); Lymphocytes # 1.6 10^3/uL (0.8-4.8); Lymphocytes % 19.3 %; Mean Corpuscular HGB Conc 30.7 g/dL (30.0-36.0); Mean Corpuscular Hemoglobin 24.7 pg (28.0-34.0); Mean Corpuscular Volume 80.2 fl (81-99); Mean Platelet Volume 10.3 fL (7.4-10.4); Monocytes # 0.5 10^3/uL (0.2-0.9); Monocytes % 6.4 %; Neutrophils # 5.73 10^3/uL (1.8-7.7); Nucleated Red Blood Cells % 0 %; Platelet Count 191 10^3/cmm (130-400); Red Cell Distribution Width 17.9 % (12.1-15.1); White Blood Count 8.2 10^3/uL (4.0-10.0)
[2022-02-01 05:15] LABS: Alanine Aminotransferase 11 U/L (0-33); Albumin Level 3.3 g/dL (3.5-5.2); Alkaline Phosphatase 82 U/L (35-105); Anion Gap 12.9 (5-19); Aspartate Amino Transferase 15 U/L (0-32); Blood Urea Nitrogen 7 mg/dL (6-20); Calcium 7.8 mg/dL (8.5-10.5); Carbon Dioxide 22 mmol/L (22-29); Chloride 106 mmol/L (98-107); Globulin 1.9 g/dL (1.3-4.6); Glomerular Filtration Rate 128.6 mL/min (90-130); Glucose 109 mg/dL (65-115); Magnesium 2.1 mg/dL (1.7-2.3); Osmolality Calculated 283 mOsm/kg (285-295); Phosphorus 2.7 mg/dL (2.5-4.5); Potassium 3.9 mmol/L (3.5-5.1); Sodium 137 mmol/L (136-145); Total Bilirubin 0.4 mg/dL (0.15-1.2); Total Protein 5.2 g/dL (6.6-8.7)
[2022-02-01 06:47] LABS: Glucose Point of Care 122 mg/dL (70-110)
--- NOTE | 2022-02-01 08:23 | FL_ITS ---
WS: [id number] MODIFIED BARIUM SWALLOW HISTORY: Oral dysphagia FLUOROSCOPY TIME: 2min [id number] # of spot films: 0 Modified barium swallow was performed by the speech pathologist. Fluoroscopy was provided with the pa tient in a lateral projection. Multiple food consistencies were provided. Several episodes of laryngeal penetration were noted with the thin liquids. No aspiration. Patient wa s able to initiate swallowing of all food products including the liquids without difficulty. Patient swallowed the barium tablet with no difficulty. FL/FL barium swallow modifd [id number] IMPRESSION: 1. A few episodes of laryngeal penetration with liquids. 2. No aspiration. Please see speech therapist report also for recommendations.
[2022-02-01] MEDS: amlodipine 10 mg Tablet PO (10:40)
[2022-02-01] MEDS: clopidogrel 75 mg Tablet PO (10:40)
[2022-02-01] MEDS: sodium chloride 0.9% 1,000 ML 75 ML IV ×2 (11:29→23:41)
[2022-02-01] MEDS: cefTRIAXone 1,000 MG in sodium chloride 0.9% (plus) 50 ML 100 MG IV (11:29)
[2022-02-01 11:55] LABS: Glucose Point of Care 173 mg/dL (70-110)
--- NOTE | 2022-02-01 16:12 | PM.PN ---
Subjective Subjective: Follow-up morning. Patient sitting up in wheelchair. She recently got a sponge bath and came back from modified barium swallow. SHe will complete placed on a dysphagia level 6 diet. Patient states she is looking forward to rehab. She knows what year it is she knows what is going on. She states she is a smoker and has not smoked in the last 4 days since she has been in the hospital. She would like to cut down but has no intention of quitting at this time. Vitals/I&O/Wt Last Vital Signs Temp 98.0 F 02/01/22 16:00 Pulse 60 02/01/22 16:00 Resp 18 02/01/22 16:00 BP 148/68 02/01/22 16:00 Pulse Ox 94 02/01/22 16:00 O2 Del Method 02/01/22 16:00 O2 Flow Rate 3 01/31/22 19:27 02/01/22 02/01/22 02/01/22 06:59 14:59 22:59 Intake Total 1000 / 1000 Balance 1000 / 1000 Physical Exam Const: COMMON NORMALS: no acute distress and patient oriented x3 Resp: COMMON NORMALS: normal respiratory effort, No retractions, No use of accessory muscles and clear to auscultation bilaterally AUSCULTATION: clear to auscultation bilaterally Cardio: COMMON NORMALS: regular rate, regular rhythm, S1 normal heart sound present and S2 normal heart sound present RATE: regular rate RHYTHM: regular rhythm HEART SOUNDS: S1 normal heart sound present and S2 normal heart sound present GI: COMMON NORMALS: Normal to inspection, nondistended, normoactive bowel sounds present, non-tender and no masses Extremity: COMMON NORMALS: no pedal edema Neuro: COMMON NORMALS: patient oriented x3 Data : 02/01/22 04:19 02/01/22 04:19 A&P Assessment and plan (1) Left-sided weakness: (2) Acute ischemic right ENGINEER SYSTEM 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 Profound left-sided weakness, dysarthria, left-sided facial droop. NIH stroke scale 18 upon presentation. Patient out of tPA window, however within the window for mechanical thrombectomy. Patient is alert awake oriented and has refused to transfer to higher center for thrombectomy. She understands the risks and benefits. Daughter is at bedside, multiple attempts to convince the patient to transfer were unsuccessful, out of thrombectomy window She elects to stay at [facility], however does not want to go to half-way, understands morbidity and mortality and poor outcome associated with suboptimal treatment of her CVA, Patient is allergic to aspirin, reports that allergy is that her throat closes up, possible anaphylaxis. On examination today has left-sided flaccid paralysis, left facial droop, left eye blindness, some degree of receptive aphasia, left-sided neglect, slurring of her words, recurrent concerns for aspiration Continue Plavix 75 mg p.o. daily. Continue atorvastatin 40 mg p.o. daily. Continue Norvasc 10 mg once daily Hemoglobin A1c 7.7, type 2 diabetes mellitus, start low-dose sliding scale Has completed permissive hypertension window PT OT assessment. Has evidence of aspiration pneumonia, aspiration pneumonitis, aspiration precautions, speech therapy eval, modified barium swallow done today. Patient will be placed on dysphagia level 6 diet. Continue on ceftriaxone and azithromycin. Patient declines PEG tube placement Head and neck CTA as noted above. Declined MRI of the the brain Telemetry monitoring to evaluate for any underlying arrhythmia such as atrial fibrillation given recurrent strokes. Echocardiogram shows EF of 55 to 65% incidentally noted left thyroid masses will need to follow-up as outpatient Full code Lovenox for DVT prophylaxis Has voiced leaving AGAINST MEDICAL ADVICE in the past, none currently Work on placing at [facility] [employer] [facility], she declines half-way placement Today 02/01 Patient willing to go for rehab. She states she hopes to gain some function back. Interested in rehab. Had OT work with her today. Pt accepted at [facility] [employer] [facility]. DC in AM. Discussed with family. Mom ok with pt leaving in AM. Attestations Medical Necessity Statement*: Patient requires hospitalization for left-sided CVA, aspiration pneumonia, aspiration pneumonitis, swallowing dysfunction after stroke Coding Level of Care Code Acute Senior Developer for Marko Capone Diagnoses Left-sided weakness R53.1 Acute ischemic right ENGINEER SYSTEM ADMINISTRATOR stroke I63.531 Type 2 diabetes mellitus E11.9 Left carotid artery stenosis I65.22 Aspiration pneumonitis J69.0 Aspiration pneumonia J69.0 COPD (chronic obstructive pulmonary disease) J44.9 Smoking F17.200 Dysphagia, post-stroke I69.391 Left hemiplegia G81.94 Left-sided neglect R41.4 Blind left eye H54.40 Facial droop due to acute stroke I63.9; R29.810 Aphasia complicating stroke
[2022-02-01 16:51] LABS: Glucose Point of Care 175 mg/dL (70-110)
[2022-02-01] MEDS: azithromycin 500 MG in sodium chloride 0.9% 250 ML 250 MG IV (16:51)
--- NOTE | 2022-02-01 20:02 | PC.NURSE ---
PT AND [facility], REQUEST THAT ALL INFORMATION REQUESTS GO THROUGH [facility]-IF ANYONE CALLS TO ASK FOR UPDATES, LET THEM KNOW TO [facility].
[2022-02-01] MEDS: atorvastatin 40 mg Tablet PO (20:30)
[2022-02-01] MEDS: enoxaparin 30 mg/0.3 mL Syringe SUBCUT (20:30)
[2022-02-01] MEDS: budesonide 0.5 mg/2 mL Neb INHALATION (20:41)
[2022-02-01 21:51] LABS: Glucose Point of Care 135 mg/dL (70-110)
[2022-02-02] VITALS: BP 167/76; PULSE 56; RESP 18; TEMP 36.6; O2SAT 91
[2022-02-02 04:00] VITALS: BP 171/78; PULSE 59; RESP 24; TEMP 36.6; O2SAT 93
[2022-02-02 04:55] LABS: Basophils % 0.6 %; Eosinophils # 0.3 10^3/uL (0.0-0.8); Eosinophils % 3.9 %; Hemoglobin 10.3 g/dL (11.5-15.3); Lymphocytes # 1.5 10^3/uL (0.8-4.8); Lymphocytes % 20.8 %; Mean Corpuscular HGB Conc 30.3 g/dL (30.0-36.0); Mean Corpuscular Hemoglobin 24.3 pg (28.0-34.0); Mean Corpuscular Volume 80.4 fl (81-99); Mean Platelet Volume 10.3 fL (7.4-10.4); Monocytes # 0.5 10^3/uL (0.2-0.9); Monocytes % 6.5 %; Neutrophils # 4.88 10^3/uL (1.8-7.7); Neutrophils % 67.2 %; Nucleated Red Blood Cells % 0 %; Platelet Count 199 10^3/cmm (130-400); Red Blood Count 4.23 10^6/uL (4.1-5.3); Red Cell Distribution Width 18.2 % (12.1-15.1); White Blood Count 7.3 10^3/uL (4.0-10.0)
[2022-02-02 05:13] LABS: Alanine Aminotransferase 14 U/L (0-33); Albumin Level 3.2 g/dL (3.5-5.2); Alkaline Phosphatase 76 U/L (35-105); Anion Gap 13.7 (5-19); Aspartate Amino Transferase 19 U/L (0-32); Blood Urea Nitrogen 8 mg/dL (6-20); Calcium 8.2 mg/dL (8.5-10.5); Carbon Dioxide 22 mmol/L (22-29); Chloride 104 mmol/L (98-107); Globulin 2.3 g/dL (1.3-4.6); Glomerular Filtration Rate 128.6 mL/min (90-130); Glucose 108 mg/dL (65-115); Osmolality Calculated 281 mOsm/kg (285-295); Phosphorus 2.5 mg/dL (2.5-4.5); Potassium 3.7 mmol/L (3.5-5.1); Sodium 136 mmol/L (136-145); Total Bilirubin 0.3 mg/dL (0.15-1.2); Total Protein 5.5 g/dL (6.6-8.7)
[2022-02-02 06:51] LABS: Glucose Point of Care 142 mg/dL (70-110)
[2022-02-02 07:31] VITALS: BP 184/69; PULSE 55; RESP 18; TEMP 36.7; O2SAT 94
[2022-02-02] MEDS: budesonide 0.5 mg/2 mL Neb INHALATION (08:32)
[2022-02-02 08:38] VITALS: PULSE 65; RESP 18; O2SAT 90
[2022-02-02] MEDS: clopidogrel 75 mg Tablet PO (10:25)
[2022-02-02] MEDS: amlodipine 10 mg Tablet PO (10:25)
[2022-02-02] MEDS: cefTRIAXone 1,000 MG in sodium chloride 0.9% (plus) 50 ML 100 MG IV (10:25)
--- NOTE | 2022-02-02 10:26 | P.DS_ITS ---
Discharge Providers Date of Admission: 01/28/22 20:35 Date of Discharge: February 02, 2022 Attending Provider at Admission: Nancy Sánchez MD Attending Provider at Discharge: Aniya Reynolds MD Primary Care Provider: Chirag Ellis DO Diagnoses at Discharge Discharge Diagnosis (1) Left-sided weakness: Status: Acute (2) Acute ischemic right RIBBON BLOCKMAKER stroke: Status: Acute (3) Type 2 diabetes mellitus: Status: Acute (4) Left carotid artery stenosis: Status: Acute (5) Aspiration pneumonitis: Status: Resolved (6) Aspiration pneumonia: Status: Acute (7) COPD (chronic obstructive pulmonary disease): Status: Acute (8) Smoking: Status: Acute (9) Dysphagia, post-stroke: Status: Resolved (10) Left hemiplegia: Status: Acute (11) Left-sided neglect: Status: Acute (12) Blind left eye: Status: Acute (13) Facial droop due to acute stroke: Status: Acute (14) Aphasia complicating stroke: Status: Acute Reason for Visit Reason for Visit: stroke like symptoms,left facial droop Brief History: As per Dr. Sánchez Zahira Blood is a 52 year old female with a past medical history of hypertension, multiple strokes in the past presenting to the emergency room today with new onset left-sided weakness, facial deviation and dysarthria.? Patient was noted to have acute stroke with NIH stroke scale of 18 upon presentation.? She was out of the tPA window upon presentation.? Time of onset was sometime between 9 AM to midnight yesterday.? She underwent CTA of the head and neck which showed ?right-sided RIBBON BLOCKMAKER P2 segment acute occlusion.? Patient was within the window to get a mechanical thrombectomy, however as arrangements were being made to transfer patient to a higher center, she eventually refused to be transferred.? When I ask her the reason for this she states that she has multiple strokes in the past, including one 10 years ago which left her paralyzed on the left side.? She was wheelchair-bound for about 3 weeks but then started to recover.? She is optimistic that she will recover and does not need to undergo any procedures.? Attempts were made to child welfare counselor her that she is only 52 years old and her best chance of resuming her baseline function would be to be transferred for a neuro eval and mechanical thrombectomy, however understanding all risks and benefits she refused to be transferred. She reports having uncontrolled hypertension.? Review of home medication shows she takes lisinopril and hydrochlorothiazide.? Denies having missed any doses recently. States that her previous strokes had all been attributed to hypertension.? She denies any history of atrial fibrillation.? Was never on any anticoagulation.? She does not recall ever having any event monitors placed. Hospital Course Hospital Course Patient presenting to patient presenting today for an acute stroke.? Profound left-sided weakness, dysarthria, left-sided facial droop.? NIH stroke scale 18 upon presentation.? Patient out of tPA window, however within the window for mechanical thrombectomy.? Patient is alert awake oriented and has refused to transfer to higher center for thrombectomy.? She understands the risks and benefits.? Daughter is at bedside, multiple attempts to convince the patient to transfer were unsuccessful, out of thrombectomy window She elects to stay at [facility], however does not want to go to group home, understands morbidity and mortality and poor outcome associated with suboptimal treatment of her CVA, Patient is allergic to aspirin, reports that allergy is that her throat closes up, possible anaphylaxis. She has a left-sided flaccid paralysis, left facial droop, left eye blindness, degree of aphasia, left-sided neglect, slurring of her words and recurrent concerns for aspiration. Speech evaluation was done and she qualified for dysphagia level 6 diet. She had declined PEG tube placement. Patient motivated to work with rehab and she hopes to gain some function back. She will be sent to [facility] bed. All questions answered. Daughter at bedside updated. Patient is allergic to aspirin and therefore that was not ordered. Physical Exam Const: COMMON NORMALS: no acute distress and patient oriented x3 Resp: COMMON NORMALS: normal respiratory effort, No retractions, No use of accessory muscles and clear to auscultation bilaterally AUSCULTATION: clear to auscultation bilaterally Cardio: COMMON NORMALS: regular rate, regular rhythm, S1 normal heart sound present and S2 normal heart sound present RATE: regular rate RHYTHM: regular rhythm HEART SOUNDS: S1 normal heart sound present and S2 normal heart sound present GI: COMMON NORMALS: Normal to inspection, nondistended, normoactive bowel sounds present, non-tender and no masses Extremity: COMMON NORMALS: no pedal edema Neuro: COMMON NORMALS: patient oriented x3 Discharge Data Studies Completed and Pending Completed Studies During Hospitalization Category Date Time Status CT head wo con* [id number] Stat Cat Scan 01/28/22 14:55 Completed CTA head neck [CT angio headneck* [id number]] Stat Cat Scan 01/28/22 15:20 Completed [place] barium swallow modifd [id number] Routine Exams 02/01/22 08:23 Completed XR chest 1V portable [id number] Routine Exams 01/29/22 09:48 Completed CV. echo complete* [id number] Routine Ultrasound 01/29/22 06:00 [place] [id number] Routine Ultrasound 01/29/22 08:20 Completed Pending at discharge Category Date Time Status Blood Culture Stat Lab 01/29/22 11:16 Results COVID [SARS Covid-2 Antigen] Routine Lab 02/02/22 08:22 Uncollected Sputum Culture and Gram Stain Stat Lab 01/29/22 09:49 Uncollected Radiology Impressions Head CT 01/28/22 14:55 IMPRESSION: 1. Chronic right superolateral thalamic lacunar infarction. 2. No acute intracranial abnormality identified. ASSESSMENT: ASPECTS (Samantha Stroke Program Early CT Score) is 10. ADDENDUM: 01/28/22 1519 THIS REPORT CONTAINS FINDINGS THAT MAY BE CRITICAL TO PATIENT CARE. The findings were verbally communicated by me to DR. GORDO MARQUEZ via telephone conference at 3:16 PM CDT on 01/28/2022. The findings were acknowledged and understood. Head/Neck CTA 01/28/22 15:20 IMPRESSION: 1. Severe stenosis proximal right posterior cerebral artery P1 segment. 2. Occlusion right posterior cerebral artery P2 segment. 3. Reconstitution right posterior cerebral artery P3 and peripheral segments, presumably via leptomeningeal collaterals. 4. Right internal carotid artery cavernous segment and clinoid segment moderate stenosis. IMPRESSION: 1. Severe (70%) left internal carotid artery origin short segment stenosis. 2. Recommend nonemergent thyroid sonography for further evaluation of a left thyroid masses. 3. Mild nonspecific mediastinal lymphadenopathy. COMMENTS: Consistent with the [employer]'s Incidental Findings Committee white paper (J Am Samantha Radiol 2015): In patients aged 35 years and older with an incidental thyroid nodule equal to or greater than 1.[address], MRI or extrathyroidal US, further evaluation with dedicated thyroid US is recommended for patients with normal life expectancy and without comorbidities. For smaller nodules without suspicious features, no further evaluation or follow up is recommended. REFERENCES: NASCET CRITERIA. The degree of stenosis in the cervical segment of the internal carotid artery is based on NASCET criteria. Normal is no stenosis. Mild is less than 50% stenosis. Moderate is 50-69% stenosis. Severe is 70% to 99% stenosis. Total occlusion is no detectable patent lumen. Thyroid Ultrasound 01/29/22 08:20 IMPRESSION: 1. Large complex cystic nodule in the LEFT thyroid. No increased vascularity. Typically cystic nodules are more likely benign. Recommend 6 month thyroid ultrasound follow-up to document stability. 2. No RIGHT thyroid nodules. Chest X-Ray 01/29/22 09:48 IMPRESSION: Imaging findings suggestive of mild pulmonary congestion. Pneumonia should be excluded clinically. Modified Barium Swallow 02/01/22 08:23 IMPRESSION: 1. A few episodes of laryngeal penetration with liquids. 2. No aspiration. Please see speech therapist report also for recommendations. Laboratory Results WBC 7.3 10^3/uL (4.0-10.0) 02/02/22 04:39 RBC 4.23 10^6/uL (4.1-5.3) 02/02/22 04:39 Hgb 10.3 g/dL (11.5-15.3) L 02/02/22 04:39 Hct 34.0 % (37.0-47.0) L 02/02/22 04:39 MCV 80.4 fl (81-99) L 02/02/22 04:39 MCH 24.3 pg (28.0-34.0) L 02/02/22 04:39 MCHC 30.3 g/dL (30.0-36.0) 02/02/22 04:39 RDW 18.2 % (12.1-15.1) H 02/02/22 04:39 Plt Count 199 10^3/cmm (130-400) 02/02/22 04:39 MPV 10.3 fL (7.4-10.4) 02/02/22 04:39 Neut % (Auto) 67.2 % 02/02/22 04:39 Lymph % (Auto) 20.8 % 02/02/22 04:39 [place] % (Auto) 6.5 % 02/02/22 04:39 Eos % (Auto) 3.9 % 02/02/22 04:39 Baso % (Auto) 0.6 % 02/02/22 04:39 Neut # (Auto) 4.88 10^3/uL (1.8-7.7) 02/02/22 04:39 Lymph # (Auto) 1.5 10^3/uL (0.8-4.8) 02/02/22 04:39 [place] # (Auto) 0.5 10^3/uL (0.2-0.9) 02/02/22 04:39 Eos # (Auto) 0.3 10^3/uL (0.0-0.8) 02/02/22 04:39 Baso # (Auto) 0.0 10^3/uL (0.0-0.1) 02/02/22 04:39 Nucleated RBC % (auto) 0 % 02/02/22 04:39 Nucleated RBCs # 0.0 /100WBC 02/02/22 04:39 PT 13.50 SECONDS (12.1-14.9) 01/28/22 15:01 INR 1.00 (0.8-1.2) 01/28/22 15:01 APTT 29.2 SECONDS (23.9-36.7) 01/28/22 15:01 Specimen Type Arterial 01/29/22 10:39 Sample Site Radial, right 01/29/22 10:39 ABG pH 7.42 (7.35-7.45) 01/29/22 10:39 ABG pCO2 42.7 mmHg (35-45) 01/29/22 10:39 ABG pO2 66.7 mmHg (80.0-100.0) L 01/29/22 10:39 ABG HCO3 27.5 mmol/L (22-26) H 01/29/22 10:39 ABG Base Excess 2.5 mmol/L (-2.0-2.0) H 01/29/22 10:39 Fermín Test Pos 01/29/22 10:39 Hematocrit 38.7 % (37-47) 01/29/22 10:39 O2 Delivery Device Nc 01/29/22 10:39 O2 Liters/Min 3.0 % 01/29/22 10:39 FiO2 32.0 % 01/29/22 10:39 Manual Lathe Machinist ID glc 01/29/22 10:39 Sodium 136 mmol/L (136-145) 02/02/22 04:39 Potassium 3.7 mmol/L (3.5-5.1) 02/02/22 04:39 Chloride 104 mmol/L (98-107) 02/02/22 04:39 Carbon Dioxide 22 mmol/L (22-29) 02/02/22 04:39 Anion Gap 13.7 (5-19) 02/02/22 04:39 BUN 8 mg/dL (6-20) 02/02/22 04:39 Creatinine 0.5 mg/dL (0.5-0.9) 02/02/22 04:39 GFR Calculation 128.6 mL/min (90-130) 02/02/22 04:39 Glucose 108 mg/dL (65-115) 02/02/22 04:39 POC Glucose 142 mg/dL (70-110) H 02/02/22 06:30 Estimat Average Glucose 174 01/29/22 04:30 Hemoglobin A1c 7.7 % (4.0-6.0) H 01/29/22 04:30 Calculated Osmolality 281 mOsm/kg (285-295) L 02/02/22 04:39 Lactate 0.6 mmol/L (0.5-2.2) 01/29/22 11:16 Calcium 8.2 mg/dL (8.5-10.5) L 02/02/22 04:39 Phosphorus 2.5 mg/dL (2.5-4.5) 02/02/22 04:39 Magnesium 2.0 mg/dL (1.7-2.3) 02/02/22 04:39 Total Bilirubin 0.3 mg/dL (0.15-1.2) 02/02/22 04:39 AST 19 U/L (0-32) 02/02/22 04:39 ALT 14 U/L (0-33) 02/02/22 04:39 Alkaline Phosphatase 76 U/L (35-105) 02/02/22 04:39 C-Reactive Protein 46.0 mg/L (0.0-4.9) H 01/29/22 04:30 NT-Pro-B Natriuret Pep 213 pg/mL (0-125) H 01/29/22 04:30 Total Protein 5.5 g/dL (6.6-8.7) L 02/02/22 04:39 Albumin 3.2 g/dL (3.5-5.2) L 02/02/22 04:39 Globulin 2.3 g/dL (1.3-4.6) 02/02/22 04:39 Triglycerides 218 mg/dL (0-150) H 01/29/22 04:30 Cholesterol 142 mg/dL (0-200) 01/29/22 04:30 LDL Cholesterol, Calc 61 mg/dL (50-129) 01/29/22 04:30 HDL Cholesterol 37 mg/dL (60-100) L 01/29/22 04:30 LDL/HDL Ratio 1.65 RATIO (0.00-3.22) 01/29/22 04:30 Cholesterol/HDL Ratio 3.84 mg/dL (0.0-4.40) 01/29/22 04:30 Procalcitonin 0.04 ng/mL (0-0.5) 01/29/22 04:30 TSH 1.37 uIU/mL (0.27-4.20) 01/29/22 04:30 Urine Color Yellow (Yellow) 01/28/22 19:12 Urine Appearance Clear (CLEAR) 01/28/22 19:12 Urine pH 5 (5-7) 01/28/22 19:12 Ur Specific [place] 1.005 (1.005-1.030) 01/28/22 19:12 Urine Protein 1+ (Negative) H 01/28/22 19:12 Urine Glucose (UA) Norm (Normal) 01/28/22 19:12 Urine Ketones 1+ (Negative) H 01/28/22 19:12 Urine Blood 3+ (Negative) H 01/28/22 19:12 Urine Nitrate Negative (Negative) 01/28/22 19:12 Urine Bilirubin Neg (Negative) 01/28/22 19:12 Urine Urobilinogen Norm mg/dL (Negative) 01/28/22 19:12 Ur Leukocyte Esterase Negative (Negative) 01/28/22 19:12 Urine RBC 5-10 /hpf (0-2) H 01/28/22 19:12 Urine WBC 0-4 /hpf (0-5) H 01/28/22 19:12 Ur Squamous Epith Cells 0-4 /hpf (0-5) H 01/28/22 19:12 Amorphous Sediment Not Reportable 01/28/22 19:12 Urine Bacteria Trace /hpf (NONE) 01/28/22 19:12 Vitals Last Vital Signs Temp 98.1 F 02/02/22 07:31 Pulse 65 02/02/22 08:38 Resp 18 02/02/22 08:38 BP 184/69 02/02/22 07:31 Pulse Ox 90 02/02/22 08:38 O2 Del Method 02/02/22 08:38 O2 Flow Rate 2 02/01/22 20:42 Discharge Plan Discharge Patient Disposition: Xfer Short-Term Hosp Condition: Stable Prescriptions: New atorvastatin 40 mg Tablet 40 mg PO BEDTIME 30 Days Qty: 30 0RF clopidogrel 75 mg Tablet 75 mg PO DAILY 30 Days Qty: 30 0RF amlodipine 10 mg Tablet 10 mg PO DAILY 30 Days Qty: 30 0RF lisinopril 20 mg tablet 20 mg PO DAILY 30 Days Qty: 30 0RF Discontinued ibuprofen 200 mg Tablet 600 mg PO Q6H PRN (Reason: Pain) lisinopril-hydrochlorothiazide 20-12.5 mg tablet 1 tab PO BID Discharge Orders: Discharge Order (Routine); Ordered 02/02/22 Ordered By: Aniya Reynolds Other Ambulatory Orders: thyroid [id number] (Routine) Timeframe: 2 Weeks Facility: [facility] - Location: Radiology [facility] Ordered By: Aniya Reynolds Referrals: [facility] [Outside] Yvonne Mascorro MD [Physician] - 02/10/22 10:00 am Rios Suarez MD [Physician] - 02/09/22 3:15 pm (Carotid Artery Stenosis) Justin Kline MD [Physician] - 04/07/22 9:15 am (Thyroid Nodule) CHIRAG ELLIS DO [Primary Care Provider] - 4-7 days Discharge Diet: Advance as tolerated Discharge Activity: Increase activity as tolerated Patient Instructions: Lisinopril (By mouth), Amlodipine (By mouth), Atorvastatin (By mouth), Levofloxacin (By mouth), Clopidogrel (By mouth) Activity Restrictions/Additional Instructions: Please monitor patient's blood pressure. BP meds may need adjustment, Please see PCP within 4-7 days of discharge. Soft bite sized diet. Dysphagia level 6 diet. PLEASE CALL [facility] FOR APPOINTMENT FOR ULTRA SOUND Discharge Attestations Time Spent in Discharge Care*: less than 30 min Quality Metrics Clinical Quality Measures [ Cerebrovascular Accident { Contraindication to Antithrombotic: None; antithrombotic prescribed; Contraindication to Anticoagulation: Other; Contraindication to Statin: None; Statin prescribed; Contraindication to antithrombotic day 2: Adverse reaction to drug; Contraindication to tPA: Patient refused; Reason stroke education not provided: Stroke education provided to patient; Rehab services assessed: Stroke rehabilitation;}] Coding Level of Care Code Acute g FW DC note Diagnoses Left-sided weakness R53.1 Acute ischemic right RIBBON BLOCKMAKER stroke I63.531 Type 2 diabetes mellitus E11.9 Left carotid artery stenosis I65.22 Aspiration pneumonitis J69.0 Aspiration pneumonia J69.0 COPD (chronic obstructive pulmonary disease) J44.9 Smoking F17.200 Dysphagia, post-stroke I69.391 Left hemiplegia G81.94 Left-sided neglect R41.4 Blind left eye H54.40 Facial droop due to acute stroke I63.9; R29.810 Aphasia complicating stroke
[2022-02-02 10:51] LABS: Glucose Point of Care 225 mg/dL (70-110)
[2022-02-02 10:59] VITALS: BP 176/64; PULSE 62; RESP 17; TEMP 36.7; O2SAT 93
[2022-02-02 11:14] LABS: SARS Covid-2 Antigen negative (Negative)
[2022-02-02] MEDS: lisinopril 20 mg Tablet PO (12:18)
[2022-02-02] MEDS: acetaminophen 500 mg Tablet 650 MG PO (12:18)
[2022-02-02 13:27] VITALS: BP 176/64; PULSE 62; RESP 17; TEMP 36.7; O2SAT 93
== END 2022-02-02 13:27 | disposition swing bed (61) | DRG 64 ==
LOC: ER 16:35 → MEDSURG 21:35
PROVIDERS: Family Medicine; Admitting Provider Student in an Organized Health Care Education/Training Program; Emergency Provider Emergency Medicine; PCP Family Medicine; Visit Provider Internal Medicine
DX: I63.531 Cerebral infarction due to unspecified occlusion or stenosis of right posterior cerebral artery (principal); J69.0 Pneumonitis due to inhalation of food and vomit; R41.4 Neurologic neglect syndrome; G81.04 Flaccid hemiplegia affecting left nondominant side; R29.718 NIHSS score 18; R29.810 Facial weakness; R47.01 Aphasia; R47.1 Dysarthria and anarthria; R47.81 Slurred speech; H54.62 Unqualified visual loss, left eye, normal vision right eye; R13.10 Dysphagia, unspecified; E11.9 Type 2 diabetes mellitus without complications; I65.22 Occlusion and stenosis of left carotid artery; I10 Essential (primary) hypertension; J44.9 Chronic obstructive pulmonary disease, unspecified; F17.200 Nicotine dependence, unspecified, uncomplicated; E07.9 Disorder of thyroid, unspecified; Z86.73 Personal history of transient ischemic attack (TIA), and cerebral infarction without residual deficits; Z91.198 Patient's noncompliance with other medical treatment and regimen for other reason
CPT/HCPCS: 36415; 36416; 36600; 70450; 70496; 70498; 71045; 74230; 76536; 80053; 80061; 81001; 82803; 82962; 83036; 83605; 83735; 83880; 84100; 84145; 84443; 85025; 85610; 85730; 86140; 87040; 87426; 92507; 92523; 92526; 92610; 92611; 93005; 93306; 94640; 96372; 97110; 97161; 97166; 97530; 97535; J0456; J0696; J1650; J1815; J2270; J7030; J7050; J7626; Q9967

== ENCOUNTER 2022-03-30 13:49 | Emergency (ER) | payer MEDICAID, SELFPAY ==
[2022-03-30] VITALS (55 sets, daily range): BP systolic 127–158; BP diastolic 80–96; PULSE 63–117; RESP 9–33; TEMP 36.8; O2SAT 87–97; BMI 32.3
--- NOTE | 2022-03-30 13:55 | ED_ITS ---
HPI - Arrhythmia/Palpitations General: Chief Complaint: Arrhythmia/Palpitations Stated Complaint: Afib Time Seen by Provider: 03/30/22 13:55 History of Present Illness: Ms. Blood is a 52-year-old lady with complex past medical history including prior stroke, COPD, diabetes presenting to the emergency department due to concern for mental status change. The patient herself just reports that she was sitting getting ready to take a shower when she had onset of a dizzy spinning feeling. This has improved significantly. Staff apparently also noticed constricted pupils and were concerned about either toxic ingestion or new neurologic symptoms. Intensity of symptoms when present was mild to moderate. Course has improved. Patient denies any other significant changes in health. Reports chronic deficits associated with prior stroke. No other specific changes in health, exacerbating, or alleviating factors identified. Onset (ago): minute(s) Severity: mild Arrhythmia history: atrial fibrillation Associated symptoms: Reports pre-syncope Review of Systems General: Reports: 10 or more systems reviewed and unremarkable except in HPI and below Card: Reports: pre-syncope [facility] ED PFSH: Medical History (Updated 04/07/22 @ 00:00 by ) History of multiple strokes Hypertension Surgical History H/O tubal ligation S/P tonsillectomy and adenoidectomy Social History Smoking and tobacco status: heavy tobacco smoker Alcohol intake: never Physical Exam 2 Const: COMMON NORMALS: alert GENERAL APPEARANCE: cooperative and well developed HENMT: COMMON NORMALS: normocephalic and atraumatic HEAD & SCALP: normocephalic and atraumatic THROAT: posterior oropharynx normal Eye: COMMON NORMALS: conjunctivae normal CONJUNCTIVA: Yes conjunctivae normal SCLERA: sclerae normal Neck/C-Spine: COMMON NORMALS: supple GENERAL: Yes trachea midline Resp: COMMON NORMALS: normal respiratory effort EFFORT & INSPECTION: Yes able to speak in complete sentences Cardio: COMMON NORMALS: regular rate and regular rhythm RATE: regular rate RHYTHM: regular rhythm GI: COMMON NORMALS: Soft to palpation PALPATION: Yes Soft to palpation and No Tenderness to palpation present (GI) PERCUSSION: normal to percussion Extremity: GENERAL: Yes normal exam except as noted and No edema Neuro: COMMON NORMALS: moves all extremities SENSORIUM/ORIENTATION: Yes alert and No Orientation impaired OTHER: Baseline left sided weakness, minimal left-sided residual facial droop reportedly chronic. Psych: COMMON NORMALS: mental status grossly normal and Normal thought process present THOUGHT PROCESS: Normal thought process present Course Vital Signs: Vital signs: Vital Signs Temperature 98.2 F 03/30/22 13:51 Pulse Rate 91 03/30/22 20:16 Respiratory Rate 32 H 03/30/22 20:00 Blood Pressure 142/85 03/30/22 20:16 Pulse Oximetry 96 03/30/22 20:16 Oxygen Delivery Me thod 03/30/22 15:00 Oxygen Flow Rate 2 03/30/22 14:30 MDM - Arrhythmia/Palpitations Medical Decision Making 52-year-old lady with complex history presenting with lightheaded/dizzy episode. Exam as above.. EKG shows atrial fibrillation with controlled ventricular response, no STEMI. Labs with mild leukocytosis and hemoconcentration compared to prior. Mild evidence of dehydration on electrolyte panel. 2-hour delta troponin is negative. TSH low with normal free T4. Chest x-ray with no lobar consolidation or pneumothorax. No acute intracranial hemorrhage or mass identified on CT scan.. Patient's heart rate control proved with metoprolol, small IV fluid bolus and insulin given. I discussed possible etiologies of the patient's symptoms with the patient. She strongly prefers not to be admitted which is likely reasonable. Most likely etiology of patient's symptoms is new onset atrial fibrillation with intermittently poor rate control. I will plan to start the patient on apixaban and metoprolol for rate control and have close follow-up. I discussed risks of apixaban with the patient. The results of ED evaluation were discussed with the patient including prescriptions and/or symptomatic cares (if applicable) including appropriate and responsible use, followup plan, and return precautions. The patient verbalized understanding and felt safe for discharge. Medical Records I reviewed the patient's medical records. Lab Data I reviewed the patient's lab results. 03/30/22 14:48 03/30/22 14:48 Radiology Impressions Chest X-Ray 03/30/22 14:01 Impression: Negative chest. Head CT 03/30/22 14:37 IMPRESSION: 1. Negative for acute intracranial abnormality. 2. Nonacute right occipital lobe ischemic infarct which has developed since 01/28/2022. Laboratory Results WBC 13.0 10^3/uL (4.0-10.0) H 03/30/22 14:48 RBC 5.64 10^6/uL (4.1-5.3) H 03/30/22 14:48 Hgb 14.1 g/dL (11.5-15.3) 03/30/22 14:48 Hct 45.4 % (37.0-47.0) 03/30/22 14:48 MCV 80.5 fl (81-99) L 03/30/22 14:48 MCH 25.0 pg (28.0-34.0) L 03/30/22 14:48 MCHC 31.1 g/dL (30.0-36.0) 03/30/22 14:48 RDW 17.2 % (12.1-15.1) H 03/30/22 14:48 Plt Count 261 10^3/cmm (130-400) 03/30/22 14:48 MPV 10.9 fL (7.4-10.4) H 03/30/22 14:48 Neut % (Auto) 83.8 % 03/30/22 14:48 Lymph % (Auto) 6.8 % 03/30/22 14:48 Webb % (Auto) 4.2 % 03/30/22 14:48 Eos % (Auto) 0.1 % 03/30/22 14:48 Baso % (Auto) 0.4 % 03/30/22 14:48 Neut # (Auto) 10.91 10^3/uL (1.8-7.7) H 03/30/22 14:48 Lymph # (Auto) 0.9 10^3/uL (0.8-4.8) 03/30/22 14:48 Webb # (Auto) 0.5 10^3/uL (0.2-0.9) 03/30/22 14:48 Eos # (Auto) 0.0 10^3/uL (0.0-0.8) 03/30/22 14:48 Baso # (Auto) 0.1 10^3/uL (0.0-0.1) 03/30/22 14:48 Nucleated RBC % (auto) 0 % 03/30/22 14:48 Nucleated RBCs # 0.0 /100WBC 03/30/22 14:48 Sodium 132 mmol/L (136-145) L 03/30/22 14:48 Potassium 4.5 mmol/L (3.5-5.1) 03/30/22 14:48 Chloride 96 mmol/L (98-107) L 03/30/22 14:48 Carbon Dioxide 24 mmol/L (22-29) 03/30/22 14:48 Anion Gap 16.5 (5-19) 03/30/22 14:48 BUN 25 mg/dL (6-20) H 03/30/22 14:48 Creatinine 0.8 mg/dL (0.5-0.9) 03/30/22 14:48 GFR Calculation 74.7 mL/min (90-130) L 03/30/22 14:48 Glucose 402 mg/dL (65-115) H 03/30/22 14:48 POC Glucose 293 mg/dL (70-110) H 03/30/22 18:36 Calculated Osmolality 295 mOsm/kg (285-295) 03/30/22 14:48 Calcium 9.5 mg/dL (8.5-10.5) 03/30/22 14:48 Magnesium 2.1 mg/dL (1.7-2.3) 03/30/22 14:48 Total Bilirubin 0.4 mg/dL (0.15-1.2) 03/30/22 14:48 AST 6 U/L (0-32) 03/30/22 14:48 ALT 13 U/L (0-33) 03/30/22 14:48 Alkaline Phosphatase 106 U/L (35-105) H 03/30/22 14:48 Troponin T Baseline 13 ng/L (0-10) H 03/30/22 14:48 Troponin T 120 Minute 12.16 ng/L (0-10) H 03/30/22 16:21 Delta Troponin T -0.84 ABS# (0-10) L 03/30/22 16:21 Total Protein 6.2 g/dL (6.6-8.7) L 03/30/22 14:48 Albumin 4.0 g/dL (3.5-5.2) 03/30/22 14:48 Globulin 2.2 g/dL (1.3-4.6) 03/30/22 14:48 TSH 0.20 uIU/mL (0.27-4.20) L 03/30/22 14:48 Free T4 1.23 ng/dL (0.82-1.77) 03/30/22 14:48 Urine Color Yellow (Yellow) 03/30/22 15:40 Urine Appearance Clear (CLEAR) 03/30/22 15:40 Urine pH 6 (5-7) 03/30/22 15:40 Ur Specific [place] 1.015 (1.005-1.030) 03/30/22 15:40 Urine Protein Neg (Negative) 03/30/22 15:40 Urine Glucose (UA) 4+ (Normal) H 03/30/22 15:40 Urine Ketones Negative (Negative) 03/30/22 15:40 Urine Blood 3+ (Negative) H 03/30/22 15:40 Urine Nitrate Negative (Negative) 03/30/22 15:40 Urine Bilirubin Neg (Negative) 03/30/22 15:40 Urine Urobilinogen Norm mg/dL (Negative) 03/30/22 15:40 Ur Leukocyte Esterase Negative (Negative) 03/30/22 15:40 Urine RBC 50-80 /hpf (0-2) H 03/30/22 15:40 Urine WBC 25-40 /hpf (0-5) H 03/30/22 15:40 Ur Squamous Epith Cells 5-10 /hpf (0-5) H 03/30/22 15:40 Amorphous Sediment Not Reportable 03/30/22 15:40 Urine Bacteria 4+ /hpf (NONE) H 03/30/22 15:40 Urine Opiates Screen Negative ng/mL (Negative) 03/30/22 15:40 Ur Barbiturates Screen Negative ng/mL (Negative) 03/30/22 15:40 Ur Phencyclidine Scrn Negative ng/mL (Negative) 03/30/22 15:40 Ur Amphetamines Screen Negative ng/mL (Negative) 03/30/22 15:40 U Benzodiazepines Scrn Negative ng/mL (Negative) 03/30/22 15:40 Urine Cocaine Screen Negative ng/mL (Negative) 03/30/22 15:40 U Marijuana (THC) Screen Negative ng/mL (Negative) 03/30/22 15:40 Discharge Plan Discharge Patient Disposition: Home Clinical Impression: Atrial fibrillation, new onset, Hyperglycemia, Dehydration, mild Condition: Stable Prescriptions: New Eliquis DVT-PE Treat 30D Start 5 mg (74 tabs) tablets,dose pack See Rx Instructions .ROUTE .COMPLEX Qty: 74 0RF Rx Instructions: orally per package directions metoprolol tartrate 25 mg tablet 25 mg PO BID Qty: 60 0RF Continued atorvastatin 40 mg Tablet 40 mg PO QPM metformin 500 mg Tablet 500 mg PO BID acetaminophen 325 mg Tablet 650 mg PO Q8H PRN (Reason: Pain) nicotine 14 mg/24 hr Patch 24 Hour 1 patch TRANSDERMAL DAILY ondansetron HCl 4 mg Tablet 4 mg PO Q6H PRN (Reason: Nausea) dexamethasone 6 mg Tablet 6 mg PO DAILY clopidogrel 75 mg Tablet 75 mg PO DAILY Milk of Magnesia 400 mg/5 mL Suspension 30 ml PO DAILY PRN (Reason: Constipation) amlodipine 10 mg Tablet 10 mg PO DAILY nicotine 21 mg/24 hr Patch 24 Hour 1 patch TRANSDERMAL DAILY Zoloft 25 mg Tablet 25 mg PO DAILY lisinopril 40 mg Tablet 40 mg PO DAILY docusate sodium 100 mg Tablet 100 mg PO Q8H PRN (Reason: Constipation) nicotine 7 mg/24 hr Patch 24 Hour 1 patch TRANSDERMAL Q24H Discharge Orders: Discharge ED (Routine); Ordered 03/30/22 Ordered By: Kendrick Beavers Referrals: CHIRAG GARCIA DO [Primary Care Provider] - Discharge Diet: Usual diet Discharge Activity: Increase activity as tolerated Patient Instructions: Apixaban (By mouth) (Eliquis), A-fib (Atrial Fibrillation) (ED) Activity Restrictions/Additional Instructions: Thank you for visiting the emergency department. You were seen and evaluated for an episode of dizziness. The exact cause of your symptoms is unclear though may be related to new onset atrial fibrillation. You are electing not to be admitted to the hospital at this time. I will prescribe Eliquis for anticoagulation, please do not take aspirin however you should continue your clopidogrel and other medications. I will also prescribe metoprolol for rate control. Please keep a log of heart rate and blood pressure to bring with you at follow- up. I will message case management for follow-up with cardiology, and outpatient echocardiogram, and also please follow-up with your primary care provider within the next 3 to 5 days. Return to the emergency department for bleeding, any falls, or anything that you are concerned about and feel needs emergency department evaluation. Coding Level of Care Code ED Laminating Machine Tender for Shivag Fwd Exam Comprehensive
--- NOTE | 2022-03-30 13:57 | ECG_ITS ---
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 Measurements Intervals [place] Rate: 92 P: 0 [place]: 0 QRS: 23 QRSD: 92 T: 104 QT: 361 QTc: 449 Interpretive Statements ATRIAL FIBRILLATION NONSPECIFIC ST & T-WAVE ABNORMALITY Compared to ECG 01/28/2022 15:37:50 T-wave abnormality now present Sinus rhythm no longer present Electronically Signed On 03-30-2022 18:50:06 ESTATE PLANNING PARALEGAL by Cecelia Franz M.D. [id number]
--- NOTE | 2022-03-30 14:01 | XR_ITS ---
WS: [id number] Portable AP upright chest, 03/30/2022 Clinical Data: tachycardia Comparison: Portable chest, 03/22/2022 Findings: No nodules, masses or effusions are seen. The heart is normal. The pulmonary vascularity is not increased. No pneumonia or pneumothorax is seen. The patient is rotated to the left. XR/XR chest 1V portable [id number] Impression: Negative chest.
--- NOTE | 2022-03-30 14:37 | CTR_ITS ---
PROCEDURE INFORMATION: Exam: CT Head Without Contrast Exam date and time: 03/30/2022 3:55 PM Age: 52 years old Clinical indication: Dizziness; Additional info: Dizziness, history of stroke TECHNIQUE: Imaging protocol: Computed tomography of the head without contrast. Radiation optimization: All CT scans at this facility use at least one of these dose optimization techniques: automated exposure control; mA and/or kV adjustment per patient size (includes targeted exams where dose is matched to clinical indication); or iterative reconstruction. COMPARISON: CT head wo con* [id number] 01/28/2022 2:52 PM RADIATION DOSE METRICS: Total DLP (mGy-cm): 1044.14 FINDINGS: Brain: There is mild cerebral atrophy. Right occipital lobe encephalomalacia new from comparison consistent with interval ischemic infarct. No intracranial hemorrhage. No mass effect on the brain. No midline shift of the brain. Cerebral ventricles: No ventriculomegaly. Paranasal sinuses: Visualized sinuses are unremarkable. No fluid levels. Mastoid air cells: Visualized mastoid air cells are well aerated. Bones/joints: Unremarkable. No acute fracture. Soft tissues: Unremarkable. CT/CT head wo con* [id number] IMPRESSION: 1. Negative for acute intracranial abnormality. 2. Nonacute right occipital lobe ischemic infarct which has developed since 01/28/2022.
[2022-03-30] MEDS: metoprolol tartrate 1 mg/1 mL SDV 5 mL 5 MG IVP (15:06)
[2022-03-30 15:22] LABS: Basophils # 0.1 10^3/uL (0.0-0.1); Basophils % 0.4 %; Eosinophils % 0.1 %; Hematocrit 45.4 % (37.0-47.0); Hemoglobin 14.1 g/dL (11.5-15.3); Lymphocytes # 0.9 10^3/uL (0.8-4.8); Lymphocytes % 6.8 %; Mean Corpuscular HGB Conc 31.1 g/dL (30.0-36.0); Mean Corpuscular Volume 80.5 fl (81-99); Mean Platelet Volume 10.9 fL (7.4-10.4); Monocytes # 0.5 10^3/uL (0.2-0.9); Monocytes % 4.2 %; Neutrophils # 10.91 10^3/uL (1.8-7.7); Neutrophils % 83.8 %; Nucleated Red Blood Cells % 0 %; Platelet Count 261 10^3/cmm (130-400); Red Blood Count 5.64 10^6/uL (4.1-5.3); Red Cell Distribution Width 17.2 % (12.1-15.1)
[2022-03-30 15:44] LABS: Troponin(5th) Baseline 13 ng/L (0-10)
[2022-03-30 15:54] LABS: Alanine Aminotransferase 13 U/L (0-33); Alkaline Phosphatase 106 U/L (35-105); Anion Gap 16.5 (5-19); Aspartate Amino Transferase 6 U/L (0-32); Blood Urea Nitrogen 25 mg/dL (6-20); Calcium 9.5 mg/dL (8.5-10.5); Carbon Dioxide 24 mmol/L (22-29); Chloride 96 mmol/L (98-107); Globulin 2.2 g/dL (1.3-4.6); Glomerular Filtration Rate 74.7 mL/min (90-130); Glucose 402 mg/dL (65-115); Magnesium 2.1 mg/dL (1.7-2.3); Osmolality Calculated 295 mOsm/kg (285-295); Potassium 4.5 mmol/L (3.5-5.1); Sodium 132 mmol/L (136-145); Total Bilirubin 0.4 mg/dL (0.15-1.2); Total Protein 6.2 g/dL (6.6-8.7)
--- NOTE | 2022-03-30 15:57 | ECG_ITS ---
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 Measurements Intervals [place] Rate: 84 P: 0 [place]: 0 QRS: 24 QRSD: 104 T: 99 QT: 405 QTc: 482 Interpretive Statements ATRIAL FIBRILLATION NONSPECIFIC ST & T-WAVE ABNORMALITY Compared to ECG 03/30/2022 14:09:31 No significant changes Electronically Signed On 03-30-2022 18:51:40 FASHION INTERN by Cecelia Franz M.D. [email or web address] ([id number]
[2022-03-30 16:24] LABS: Amphetamines Screen Urine Negative (Negative); Barbiturates Screen Urine Negative (Negative); Benzodiazepines Screen Urine Negative (Negative); Cocaine Screen Urine Negative (Negative); Opiate Screen Urine Negative (Negative); PCP Screen Urine Negative (Negative); THC Screen Urine Negative (Negative)
[2022-03-30] MEDS: sodium chloride 0.9% 500 ML 999 ML IV (16:40)
[2022-03-30 16:55] LABS: Urine Appearance Clear (CLEAR); Urine Color Yellow (Yellow); pH Urine 6 (5-7)
[2022-03-30 16:56] LABS: Add Urine Microscopic? YES; Bacteria Urine 4+ /hpf; Bilirubin Urine Neg (Negative); Blood Urine 3+ (Negative); Glucose Urine UA 4+ (Normal); Ketones Urine Negative (Negative); Leukocyte Esterase Urine Negative (Negative); Nitrate Urine Negative (Negative); Protein Urine Neg (Negative); RBC Urine 50-80 /hpf (0-2); Specific Gravity, Urine 1.015 (1.005-1.030); Urobilinogen Urine Norm (Negative); WBC Urine 25-40 /hpf (0-5)
[2022-03-30 16:57] LABS: Add Urine Culture? Yes
[2022-03-30 17:29] LABS: Troponin 5 2HR 12.16 ng/L (0-10); Troponin 5 2HR Delta -0.84 ABS# (0-10)
[2022-03-30 17:36] LABS: Free T4 Free Thyroxine 1.23 ng/dL (0.82-1.77)
[2022-03-30 18:40] LABS: Glucose Point of Care 293 mg/dL (70-110)
[2022-03-30] MEDS: metoprolol tartrate 25 mg Tablet 12.5 MG PO (18:55)
[2022-03-30] MEDS: insulin regular-human 100 units/1 mL 5 UNIT IVP (18:55)
--- NOTE | 2022-03-31 13:53 | DCPLANNER ---
Addendum entered by Ginger Layne 07/12/22 08:08: This was cancelled Original Note: program manager slp had message to schedule an outpatient echocardiogram for patient. program manager slp faxed signed order to centralized scheduling, who will call patient with appointment information.
--- NOTE | 2022-03-31 13:55 | DCPLANNER ---
Addendum entered by Ginger Layne 07/12/22 08:08: Patient had a follow up appointment scheduled with heart care - patient did not attend appointment Addendum entered by Ginger Layne 04/13/22 15:34: Patient has a follow up appointment scheduled for April at 12:[address] Callahan at [facility]. Clinic will call patient with appointment information. Addendum entered by Ginger Layne 04/13/22 14:33: manager farm received the following message from [facility] regarding follow up appointment: Attempted to call patient. Phone keeps ringing then says call can't be completed at this time. Mailed patient appt letter for 05/20 @ 12:15. Thank you! On 04/01/22 @ 08:36 Marley Ramirez Wrote To [facility] Front Office Attempted to call patient. Phone keeps ringing then says call can't be completed at this time. Original Note: manager farm had message to schedule a follow up appointment for patient with cardiology. manager farm sent patients information to the front office staff at [facility]. Patients information will be printed and reviewed. Clinic will call patient with appointment information.
== END 2022-03-30 20:08 | disposition home or self-care (01) ==
PROVIDERS: Emergency Provider Emergency Medicine; PCP Family Medicine
DX: I48.91 Unspecified atrial fibrillation (principal); E11.65 Type 2 diabetes mellitus with hyperglycemia; E86.0 Dehydration; Z79.84 Long term (current) use of oral hypoglycemic drugs; Z79.02 Long term (current) use of antithrombotics/antiplatelets; I10 Essential (primary) hypertension; Z86.73 Personal history of transient ischemic attack (TIA), and cerebral infarction without residual deficits; F17.210 Nicotine dependence, cigarettes, uncomplicated; J44.9 Chronic obstructive pulmonary disease, unspecified
CPT/HCPCS: 36415; 36416; 70450; 71045; 80053; 80306; 81001; 82962; 83735; 84439; 84443; 84484; 85025; 87086; 93005; 96361; 96374; 96375; 99285; J1815; J3490; J7040